=== PATIENT | male | born 1935 | race Caucasian/White ===

== ENCOUNTER → 2017-09-24 10:35 | Outpatient (CLI) | payer MEDICARE, SELFPAY ==
[2017-09-24 11:59] LABS: PSA,Total- Diagnostic < 0.01 ng/mL (0.0-4.0)
== END ==
PROVIDERS: Family Provider Internal Medicine; PCP Internal Medicine; Visit Provider Urology
DX: C61 Malignant neoplasm of prostate (principal); R97.20 Elevated prostate specific antigen [PSA]
CPT/HCPCS: 36415; 84153

== ENCOUNTER → 2017-12-21 15:47 | Outpatient (CLI) | payer MEDICARE, SELFPAY ==
[2017-12-21 18:53] LABS: PSA,Total- Diagnostic < 0.01 ng/mL (0.0-4.0)
== END ==
PROVIDERS: Family Provider Internal Medicine; PCP Internal Medicine; Visit Provider Urology
DX: C61 Malignant neoplasm of prostate (principal)
CPT/HCPCS: 36415; 84153

== ENCOUNTER → 2018-06-23 11:05 | Outpatient (CLI) | payer MEDICARE, SELFPAY ==
[2018-06-23 12:40] LABS: PSA,Total- Diagnostic < 0.01 ng/mL (0.0-4.0)
--- OUTSIDE RECORDS SUMMARY | 2018-08-28 02:34 | XMS RPT_ITS ---
:1935 Author Organization [place] Support Name Relationship Address Phone RAMILA CROWDER Unavailable [id number] + [address] [place] [address] R Unavailable Unavailable Unavailable KORNHAUS, WAVA Unavailable [address] + [place] [address] KORNHAUS, WAVA Unavailable [address] + [place] [address] KORNHAUS, WAVA Unavailable [address] + [place] [address] KORNHAUS, WAVA Unavailable [address] + [place] [address] KORNHAUS, WAVA Unavailable [address] + [place] [address] KORNHAUS, WAVA Unavailable [address] + [place] [address] KORNHAUS, WAVA Unavailable [address] + [place] [address] KORNHAUS, WAVA Unavailable [address] + [place] [address] KORNHAUS, WAVA Unavailable [address] + [place] [address] KORNHAUS, WAVA Unavailable [address] + [place] [address] KORNHAUS, WAVA Unavailable [address] + [place] [address] KORNHAUS, WAVA Unavailable [address] + [place] [address] KORNHAUS, WAVA Unavailable [address] + [place] [address] KORNHAUS, WAVA Unavailable [address] + [place] [address] VEL, WAVA Unavailable [id number] + [address] [place] [address] R Unavailable Unavailable Unavailable ANGELIANHAUS, WAVA Unavailable [address] + [place] [address] ANGELIANHAUS, WAVA Unavailable [address] + [place] [address] ANGELIANHAUS, WAVA Unavailable [address] + [address] [place] [address] R Unavailable Unavailable Unavailable Care Team Providers Name Role Phone GARY PETIT, ANTONY Diaz JR. Attending Unavailable ANTONY VEGA MD, JR. Primary Care Unavailable ANTONY VEGA MD, JR. Primary Care Unavailable JOSHUA MCGRATH MD. JENNIFER Diaz Consulting Unavailable JOSHUA MCGRATH MD. JENNIFER Diaz Admitting Unavailable JOSHUA MCGRATH MD. JENNIFER Diaz Attending Unavailable JOSHUA MCGRATH MD. JENNIFER Diaz Admitting Unavailable JOSHUA MCGRATH MD. JENNIFER Diaz Attending Unavailable ANTONY VEGA MD, JR. Primary Care Unavailable JAE MCCAULEY MD Consulting Unavailable JUDITH WILSON MD Consulting Unavailable CARMEN MCGRATH, DR. ELLEN Domingo Consulting Unavailable ALEXIS MCGRATH, DR. TIJERINA Consulting Unavailable LISSY GANTS, DR. MUÑOZ Consulting Unavailable HERBERT SR MD Consulting Unavailable JOSHUA MCGRATH MD. JENNIFER Diaz Admitting Unavailable JOSHUA MCGRATH MD. JENNIFER Diaz Attending Unavailable ANTONY VEGA MD, JR. Primary Care Unavailable ANTONY VEGA MD, JR. Consulting Unavailable HERBERT SR MD Consulting Unavailable JAE MCCAULEY MD Attending Unavailable ANTONY VEGA MD, JR. Primary Care Unavailable ANTONY VEGA MD, JR. Attending Unavailable ANTONY VEGA MD, JR. Primary Care Unavailable JUDITH WILSON MD Attending Unavailable ANTONY VEGA MD, JR. Primary Care Unavailable ANTONY VEGA MD, JR. Attending Unavailable ANTONY VEGA MD, JR. Primary Care Unavailable Chava Raman Attending Unavailable Chava Raman Referring Unavailable Antony Vega Jr. Primary Care Unavailable Chava Raman Attending Unavailable Antony Vega Jr. Primary Care Unavailable Chava Raman Referring Unavailable Chava Raman Attending Unavailable Chava Raman Referring Unavailable Antony Vega Jr. Primary Care Unavailable PROBLEMS PROBLEMS DATE TYPE CONDITION / CODE ATTENDING STATUS SOURCE 06/23/2018 Unknown C61 - Malignant Chava Raman Active [facility] prostate / Hospital C61(ICD-10) Repository 09/24/2017 Unknown R97.20 - Chava Raman Active [place] [facility] prostate Hospital specific antigen Repository [PSA] / R97.20(ICD-10) PROCEDURES PROCEDURES No Procedure Records FoundRESULTS RESULTS PSA,TOTAL- DIAGNOSTIC Collected: 06/23/2018 Status: F Source: [place] 11:13 AM [facility] REPOSITORY TYPE CODE TESTS RESULT OUT OF RANGE REFERENCE UNITS LAB L501.9940 0.0-4.0 ng/mL PSA, Normal DIAGNOSTIC < 0.01 Result Comment: This test was performed using the TPSA assay method for the [employer] chemistry system. Values obtained with different assay methods cannot be used interchangably. When changing PSA assays in the course of monitoring a patient, additional sequential testing should be carried out to confirm baseline values. Performed By: #### L501.9940 #### [facility] [address] [place], [address] HGMP Collected: 06/16/2018 Status: F Source: [employer] 10:26 AM [facility] EM[facility]PART[facility] REPOSITORY TYPE CODE TESTS RESULT OUT OF REFERENCE UNITS RANGE LAB WBC(LOINC) 4.60-10.80 10 3/mcL WBC 5.50 LAB RBCCT(LOINC 4.04-6.13 10 6/mcL ) Low RBC 3.64 LAB HGB(LOINC) 14.0-18.0 G/dL Low Hgb 11.2 LAB HCT(LOINC) 42.0-52.0 % Low Hct 34.0 LAB MCV(LOINC) 80.0-94.0 fL MCV 93.4 LAB MCH(LOINC) 27.0-31.2 pg MCH 30.8 LAB MCHC(LOINC) 31.8-35.4 G/dL MCHC 33.0 LAB RDW(LOINC) 11.5-14.5 % High RDW 18.1 LAB PLT(LOINC) 130-400 10 3/mcL Platelet 399 LAB MPV(LOINC) 7.4-10.4 fL MPV 7.6 Performed By: #### HGMP #### [facility] [address] [place], [place] [address] HG Collected: 03/24/2018 Status: F Source: [facility] 1:42 PM [facility] EM[facility] REPOSITORY TYPE CODE TESTS RESULT OUT OF REFERENCE UNITS RANGE LAB WBC(LOINC) 4.50-10.80 10 3/mcL WBC 7.00 LAB RBCCT(LOINC 4.50-6.00 10 6/mcL ) Low RBC 3.71 LAB HGB(LOINC) 13.0-17.5 G/dL Low Hgb 11.3 LAB HCT(LOINC) 40.0-52.0 % Low Hct 34.1 LAB MCV(LOINC) 81.0-100.0 fL MCV 92.0 LAB MCH(LOINC) 27.0-33.0 pg MCH 30.4 LAB MCHC(LOINC) 32.0-36.0 G/dL MCHC 33.0 LAB RDW(LOINC) 11.5-15.5 % High RDW 16.0 LAB PLT(LOINC) 150-450 10 3/mcL High Platelet 603 LAB MPV(LOINC) 6.4-10.5 fL MPV 7.6 Performed By: #### HGMP #### [place] [address] XR CHEST 2 VIEWS Observed: 03/24/2018 Status: F Source: [facility] 12:14 PM [facility] REPOSITORY ORIGINAL XR CHEST 2 VIEWS CLINICAL STATEMENT: SOB COMPARISON: 03/05/2018 FINDINGS:The cardiac contours are slightly decreased in prominence. Postoperative changes to the sternum and mediastinum are noted. There is a moderate LEFT pleural effusion or scarring cardiac and susy diaphragm contours progressive when compared to the prior imaging study with underlying parenchymal opacity [. No pneumothorax or pneumomediastinum has developed. Minimal blunting of the RIGHT costophre robert angle and findings consistent with a trace amount of fluid is present. 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 Chronic changes to the bony thorax is noted. IMPRESSION:Mild worsening in aeration to the LEFT lung base Interpreted By: Siri Kowalski MD Preliminary Report By: Siri Kowalski MD Electronically Signed By: Siri Kowalski MD Dictated Date: 03/24/2018 12:38:59 PM Prelim Date: 03/24/2018 12:38:59 PM Sign Date: 03/24/2018 12:39:52 PM CBC Collected: 03/06/2018 Status: F Source: [facility] 3:49 AM [facility] REPOSITORY TYPE CODE TESTS RESULT OUT OF REFERENCE UNITS RANGE LAB WBC(LOINC) 4.50-10.80 10 3/mcL WBC 4.60 LAB RBCCT(LOINC 4.50-6.00 10 6/mcL ) Low RBC 3.40 LAB HGB(LOINC) 13.0-17.5 G/dL Low Hgb 10.5 LAB HCT(LOINC) 40.0-52.0 % Low Hct 31.0 LAB MCV(LOINC) 81.0-100.0 fL MCV 91.3 LAB MCH(LOINC) 27.0-33.0 pg MCH 30.8 LAB MCHC(LOINC) 32.0-36.0 G/dL MCHC 33.8 LAB RDW(LOINC) 11.5-15.5 % High RDW 16.8 LAB PLT(LOINC) 150-450 10 3/mcL Platelet 261 LAB MPV(LOINC) 6.4-10.5 fL MPV 7.7 Performed By: #### CBC, ADIFF, ANEU, BMP, GFR #### [place] [address] .AUTO DIFF Collected: 03/06/2018 Status: F Source: [facility] 3:49 AM [facility] REPOSITORY TYPE CODE TESTS RESULT OUT OF REFERENCE UNITS RANGE LAB TIM(LOINC) 50.0-75.0 % Neutrophil % 62.9 LAB LYM(LOINC) 20.0-40.0 % Low Lymphocyte % 17.3 LAB MON(LOINC) 2.0-13.0 % Monocyte High % 14.8 LAB EO(LOINC) 0.0-6.0 % Eosinophil % 4.7 LAB BAS(LOINC) 0.0-2.5 % Basophil % 0.3 LAB ABLYM(LOIN 0.90-4.32 10 3/mcL C) Low Lymphocyte, 0.80 Absolute LAB CISCO(LOINC 0.09-1.40 10 3/mcL ) Monocyte, 0.70 Absolute LAB AEOS(LOINC 0.00-0.65 10 3/mcL ) Eosinophil, 0.20 Absolute LAB ABAS(LOINC 0.00-0.27 10 3/mcL ) Basophil, 0.00 Absolute Performed By: #### CBC, ADIFF, ANEU, BMP, GFR #### [address] [address] .NEUABS Collected: 03/06/2018 Status: F Source: [facility] 3:49 AM [facility] REPOSITORY TYPE CODE TESTS RESULT OUT OF REFERENCE UNITS RANGE LAB ANEU(LOINC) 2.25-8.10 10 3/mcL Neutrophil, 2.90 Absolute Performed By: #### CBC, ADIFF, ANEU, BMP, GFR #### [place] [id number] BMP Collected: 03/06/2018 Status: F Source: [facility] 3:49 AM [facility] REPOSITORY TYPE CODE TESTS RESULT OUT OF REFERENCE UNITS RANGE LAB GLU(LOINC) 82-115 mg/dL Glucose Level 110 LAB NA(LOINC) 136-145 mEq/L Sodium Level 139 LAB K(LOINC) 3.5-5.0 mEq/L Potassium Level 4.2 LAB CL(LOINC) 98-110 mEq/L Chloride 106 LAB CO2(LOINC) 22-32 mEq/L CO2 27 LAB EBAL(LOINC 4.0-15.0 mEq/L ) Electrolyte Balance 6.0 LAB BUN(LOINC) 8.0-22.0 mg/dL BUN High 50.0 LAB CRE(LOINC) 0.60-1.40 mg/dL Creatinine Lvl (s) 1.15 LAB BC(LOINC) 10.0-22.0 ratio High BUN/Creatinine 43.5 Ratio LAB CA(LOINC) 8.4-10.1 mg/dL Calcium Lvl 8.8 Performed By: #### CBC, ADIFF, ANEU, BMP, GFR #### [address] [address] .GFR Collected: 03/06/2018 Status: F Source: [facility] 3:49 AM [facility] REPOSITORY TYPE CODE TESTS RESULT OUT OF REFERENCE UNITS RANGE LAB GFRAA(LOINC ml/min/1.73 ) sqm GFR >60 Mongolian Result Comment: GFR Population mean for , Non- Americans Ages 20-29 = 116 mL/min/1.73 sq.m. Ages 30-39 = 107 mL/min/1.73 sq.m. Ages 40-49 = 99 mL/min/1.73 sq.m. Ages 50-59 = 93 mL/min/1.73 sq.m. Ages 60-69 = 85 mL/min/1.73 sq.m. Ages 70+ = 75 mL/min/1.73 sq.m. Chronic Kidney Disease: Less than 60 mL/min/1.73 square meters End Stage Renal Disease: Less than 15 mL/min/1.73 square meters LAB GFRNO(LOINC) ml/min/1.73sqm GFR Non- >60 Result Comment: GFR Population mean for , Non- Americans Ages 20-29 = 116 mL/min/1.73 sq.m. Ages 30-39 = 107 mL/min/1.73 sq.m. Ages 40-49 = 99 mL/min/1.73 sq.m. Ages 50-59 = 93 mL/min/1.73 sq.m. Ages 60-69 = 85 mL/min/1.73 sq.m. Ages 70+ = 75 mL/min/1.73 sq.m. Chronic Kidney Disease: Less than 60 mL/min/1.73 square meters End Stage Renal Disease: Less than 15 mL/min/1.73 square meters Performed By: #### CBC, ADIFF, ANEU, BMP, GFR #### [place] [address] XR CHEST 2 VIEWS Observed: 03/05/2018 Status: F Source: [facility] 6:43 AM [facility] REPOSITORY ORIGINAL Clinical history: Abnormal breath sounds. Follow-up after cardiac surgery. Postoperative day 4. COMPARISON: Chest x-ray on 03/04/2018. PA and lateral radiographs of the chest were obtained. LEFT subclavian central venous catheter tip is in the superior vena cava. Bilateral chest tubes have been removed since the prior day. The lungs demonstrate improved expansion. There is minimal bilateral pleural fluid and small bilateral lower lobe atelectasis. This is improved since the prior day. There is no pneumothorax. No pulmonar y edema is present. No new abnormality has developed. IMPRESSION: Small bilateral pleural effusions and mild bilateral lower lobe atelectasis. No pneumothorax. Interpreted By: Lambert Weir MD Preliminary Report By: Lambert Weir MD Electronically Signed By: Lambert Weir MD Dictated Date: 03/05/2018 7:23:58 AM Prelim Date: 03/05/2018 7:23:58 AM Sign Date: 03/05/2018 7:25:48 AM BMP Collected: 03/05/2018 Status: F Source: [facility] 4:03 AM [facility] REPOSITORY TYPE CODE TESTS RESULT OUT OF REFERENCE UNITS RANGE LAB GLU(LOINC) 82-115 mg/dL Glucose Level 106 LAB NA(LOINC) 136-145 mEq/L Sodium Level 139 LAB K(LOINC) 3.5-5.0 mEq/L Potassium Level 3.9 LAB CL(LOINC) 98-110 mEq/L Chloride 106 LAB CO2(LOINC) 22-32 mEq/L CO2 25 LAB EBAL(LOINC 4.0-15.0 mEq/L ) Electrolyte Balance 8.0 LAB BUN(LOINC) 8.0-22.0 mg/dL BUN High 49.0 LAB CRE(LOINC) 0.60-1.40 mg/dL Creatinine Lvl (s) 1.22 LAB BC(LOINC) 10.0-22.0 ratio High BUN/Creatinine 40.2 Ratio LAB CA(LOINC) 8.4-10.1 mg/dL Calcium Lvl 8.4 Performed By: #### BMP, GFR, CBC, ADIFF, ANEU #### [place] [address] .GFR Collected: 03/05/2018 Status: F Source: [facility] 4:03 AM [facility] REPOSITORY TYPE CODE TESTS RESULT OUT OF REFERENCE UNITS RANGE LAB GFRAA(LOINC ml/min/1.73 ) sqm GFR >60 Mongolian Result Comment: GFR Population mean for , Non- Americans Ages 20-29 = 116 mL/min/1.73 sq.m. Ages 30-39 = 107 mL/min/1.73 sq.m. Ages 40-49 = 99 mL/min/1.73 sq.m. Ages 50-59 = 93 mL/min/1.73 sq.m. Ages 60-69 = 85 mL/min/1.73 sq.m. Ages 70+ = 75 mL/min/1.73 sq.m. Chronic Kidney Disease: Less than 60 mL/min/1.73 square meters End Stage Renal Disease: Less than 15 mL/min/1.73 square meters LAB GFRNO(LOINC) ml/min/1.73sqm GFR Non- 57 Result Comment: GFR Population mean for , Non- Americans Ages 20-29 = 116 mL/min/1.73 sq.m. Ages 30-39 = 107 mL/min/1.73 sq.m. Ages 40-49 = 99 mL/min/1.73 sq.m. Ages 50-59 = 93 mL/min/1.73 sq.m. Ages 60-69 = 85 mL/min/1.73 sq.m. Ages 70+ = 75 mL/min/1.73 sq.m. Chronic Kidney Disease: Less than 60 mL/min/1.73 square meters End Stage Renal Disease: Less than 15 mL/min/1.73 square meters Performed By: #### BMP, GFR, CBC, ADIFF, ANEU #### [address] [address] CBC Collected: 03/05/2018 Status: F Source: [employer] 4:03 AM [facility] REPOSITORY TYPE CODE TESTS RESULT OUT OF REFERENCE UNITS RANGE LAB WBC(LOINC) 4.50-10.80 10 3/mcL WBC 4.90 LAB RBCCT(LOINC 4.50-6.00 10 6/mcL ) Low RBC 3.15 LAB HGB(LOINC) 13.0-17.5 G/dL Low Hgb 9.7 LAB HCT(LOINC) 40.0-52.0 % Low Hct 28.6 LAB MCV(LOINC) 81.0-100.0 fL MCV 90.7 LAB MCH(LOINC) 27.0-33.0 pg MCH 30.7 LAB MCHC(LOINC) 32.0-36.0 G/dL MCHC 33.9 LAB RDW(LOINC) 11.5-15.5 % High RDW 17.5 LAB PLT(LOINC) 150-450 10 3/mcL Platelet 201 LAB MPV(LOINC) 6.4-10.5 fL MPV 7.9 Performed By: #### BMP, GFR, CBC, ADIFF, ANEU #### [address] [address] .AUTO DIFF Collected: 03/05/2018 Status: F Source: [facility] 4:03 AM [facility] REPOSITORY TYPE CODE TESTS RESULT OUT OF REFERENCE UNITS RANGE LAB TIM(LOINC) 50.0-75.0 % Neutrophil % 68.0 LAB LYM(LOINC) 20.0-40.0 % Low Lymphocyte % 17.3 LAB MON(LOINC) 2.0-13.0 % Monocyte % 10.8 LAB EO(LOINC) 0.0-6.0 % Eosinophil % 3.5 LAB BAS(LOINC) 0.0-2.5 % Basophil % 0.4 LAB ABLYM(LOIN 0.90-4.32 10 3/mcL C) Low Lymphocyte, 0.80 Absolute LAB CISCO(LOINC 0.09-1.40 10 3/mcL ) Monocyte, 0.50 Absolute LAB AEOS(LOINC 0.00-0.65 10 3/mcL ) Eosinophil, 0.20 Absolute LAB ABAS(LOINC 0.00-0.27 10 3/mcL ) Basophil, 0.00 Absolute Performed By: #### BMP, GFR, CBC, ADIFF, ANEU #### [place] [address] .NEUABS Collected: 03/05/2018 Status: F Source: [facility] 4:03 AM [facility] REPOSITORY TYPE CODE TESTS RESULT OUT OF REFERENCE UNITS RANGE LAB ANEU(LOINC) 2.25-8.10 10 3/mcL Neutrophil, 3.30 Absolute Performed By: #### BMP, GFR, CBC, ADIFF, ANEU #### [place] [address] TABO Collected: 03/04/2018 Status: C Source: [facility] 8:43 AM [facility] REPOSITORY TYPE CODE TESTS RESULT OUT OF RANGE REFERENCE UNITS LAB ABORH(LOINC ) Unknown ABO/Rh A NEG Interp Performed By: #### ABORH, ANTIS #### [place] [address] TABS Collected: 03/04/2018 Status: F Source: [facility] 8:43 AM [facility] REPOSITORY TYPE CODE TESTS RESULT OUT OF REFERENCE UNITS RANGE LAB ANST(LOINC ) Antibody Negative ABSC Screen Tango Performed By: #### ABORH, ANTIS #### [place] [address] RBC (PRODUCT) Collected: 03/04/2018 Status: F Source: [facility] 8:24 AM [facility]PART[facility] REPOSITORY TYPE CODE TESTS RESULT OUT OF REFERENCE UNITS RANGE LAB RBCPR(LOINC ) RBC Product RBC Ready Ready for Pickup Performed By: #### RBCP #### [facility] [address] [place] [address] XR CHEST 1 VIEW Observed: 03/04/2018 Status: F Source: [facility] 4:30 AM [facility]PART[facility] REPOSITORY ORIGINAL Clinical history: Abnormal breath sounds. COMPARISON: Chest x-ray on 03/03/2018. Portable AP radiograph of the chest was obtained at 4:50 AM. LEFT subclavian central venous catheter tip is in the superior vena cava. Bilateral chest tubes are unchanged. There is no visible pneumothorax. Mild atelectasis at both lung bases is slightly improved since the prior day. There is no significant pleural fluid. No pulmonary edema is present. No new abnormality has developed. IMPRESSION: Small bilateral basilar infiltrates are likely atelectasis showing slight improvement. Interpreted By: Lambert Weir MD Preliminary Report By: Lambert Weir MD Electronically Signed By: Lambert Weir MD Dictated Date: 03/04/2018 4:57:34 AM Prelim Date: 03/04/2018 4:57:34 AM Sign Date: 03/04/2018 4:59:21 AM CBC Collected: 03/04/2018 Status: F Source: [facility] 3:36 AM [facility] REPOSITORY TYPE CODE TESTS RESULT OUT OF REFERENCE UNITS RANGE LAB WBC(LOINC) 4.50-10.80 10 3/mcL WBC 7.20 LAB RBCCT(LOINC 4.50-6.00 10 6/mcL ) Low RBC 2.33 LAB HGB(LOINC) 13.0-17.5 G/dL Low Hgb 7.5 LAB HCT(LOINC) 40.0-52.0 % Low Hct 22.2 LAB MCV(LOINC) 81.0-100.0 fL MCV 95.2 LAB MCH(LOINC) 27.0-33.0 pg MCH 32.2 LAB MCHC(LOINC) 32.0-36.0 G/dL MCHC 33.8 LAB RDW(LOINC) 11.5-15.5 % High RDW 15.8 LAB PLT(LOINC) 150-450 10 3/mcL Platelet 201 LAB MPV(LOINC) 6.4-10.5 fL MPV 7.9 Performed By: #### CBC, ADIFF, ANEU, GFR, BMP #### [address] [address] .AUTO DIFF Collected: 03/04/2018 Status: F Source: [facility] 3:36 AM [facility]PARTMENT REPOSITORY TYPE CODE TESTS RESULT OUT OF REFERENCE UNITS RANGE LAB TIM(LOINC) 50.0-75.0 % High Neutrophil % 80.5 LAB LYM(LOINC) 20.0-40.0 % Low Lymphocyte % 10.0 LAB MON(LOINC) 2.0-13.0 % Monocyte % 8.6 LAB EO(LOINC) 0.0-6.0 % Eosinophil % 0.7 LAB BAS(LOINC) 0.0-2.5 % Basophil % 0.2 LAB ABLYM(LOIN 0.90-4.32 10 3/mcL C) Low Lymphocyte, 0.70 Absolute LAB CISCO(LOINC 0.09-1.40 10 3/mcL ) Monocyte, 0.60 Absolute LAB AEOS(LOINC 0.00-0.65 10 3/mcL ) Eosinophil, 0.10 Absolute LAB ABAS(LOINC 0.00-0.27 10 3/mcL ) Basophil, 0.00 Absolute Performed By: #### CBC, ADIFF, ANEU, GFR, BMP #### [address] [address] .NEUABS Collected: 03/04/2018 Status: F Source: [facility] 3:36 AM [facility]PART[facility] REPOSITORY TYPE CODE TESTS RESULT OUT OF REFERENCE UNITS RANGE LAB ANEU(LOINC) 2.25-8.10 10 3/mcL Neutrophil, 5.80 Absolute Performed By: #### CBC, ADIFF, ANEU, GFR, BMP #### [place] [address] .GFR Collected: 03/04/2018 Status: F Source: [facility] 3:36 AM [facility]PART[facility] REPOSITORY TYPE CODE TESTS RESULT OUT OF REFERENCE UNITS RANGE LAB GFRAA(LOINC ml/min/1.73 ) sqm GFR >60 Mongolian Result Comment: GFR Population mean for , Non- Americans Ages 20-29 = 116 mL/min/1.73 sq.m. Ages 30-39 = 107 mL/min/1.73 sq.m. Ages 40-49 = 99 mL/min/1.73 sq.m. Ages 50-59 = 93 mL/min/1.73 sq.m. Ages 60-69 = 85 mL/min/1.73 sq.m. Ages 70+ = 75 mL/min/1.73 sq.m. Chronic Kidney Disease: Less than 60 mL/min/1.73 square meters End Stage Renal Disease: Less than 15 mL/min/1.73 square meters LAB GFRNO(LOINC) ml/min/1.73sqm GFR Non- >60 Result Comment: GFR Population mean for , Non- Americans Ages 20-29 = 116 mL/min/1.73 sq.m. Ages 30-39 = 107 mL/min/1.73 sq.m. Ages 40-49 = 99 mL/min/1.73 sq.m. Ages 50-59 = 93 mL/min/1.73 sq.m. Ages 60-69 = 85 mL/min/1.73 sq.m. Ages 70+ = 75 mL/min/1.73 sq.m. Chronic Kidney Disease: Less than 60 mL/min/1.73 square meters End Stage Renal Disease: Less than 15 mL/min/1.73 square meters Performed By: #### CBC, ADIFF, ANEU, GFR, BMP #### [place] [address] BMP Collected: 03/04/2018 Status: F Source: [facility] 3:36 AM [facility] REPOSITORY TYPE CODE TESTS RESULT OUT OF REFERENCE UNITS RANGE LAB GLU(LOINC) 82-115 mg/dL Glucose Level 111 LAB NA(LOINC) 136-145 mEq/L Sodium Level 139 LAB K(LOINC) 3.5-5.0 mEq/L Potassium Level 4.4 LAB CL(LOINC) 98-110 mEq/L Chloride 107 LAB CO2(LOINC) 22-32 mEq/L CO2 24 LAB EBAL(LOINC 4.0-15.0 mEq/L ) Electrolyte Balance 8.0 LAB BUN(LOINC) 8.0-22.0 mg/dL BUN High 47.0 LAB CRE(LOINC) 0.60-1.40 mg/dL Creatinine Lvl (s) 1.15 LAB BC(LOINC) 10.0-22.0 ratio High BUN/Creatinine 40.9 Ratio LAB CA(LOINC) 8.4-10.1 mg/dL Calcium Lvl 8.6 Performed By: #### CBC, ADIFF, ANEU, GFR, BMP #### [place] [address] Observed: 03/03/2018 Status: F Source: [facility] 10:37 PM [facility] EM[facility] REPOSITORY . MICRO - Microbiology PROCEDURE: Blood Culture (bacterial and fungal) [*1] SOURCE: Blood BODY SITE: COLLECTED DATE/TIME: 03/03/2018 22:37 EDT RECEIVED DATE/TIME: 03/04/2018 06:23 EDT START DATE/TIME: 03/04/2018 06:23 EDT FREE TEXT SOURCE: peripheral FINAL REPORTS Final Report [] Verified Date/Time/Personnel: 03/31/2018 10:35 EDT Blood Culture with fungus: No growth at 4 weeks. PRELIMINARY REPORTS Preliminary Report [] Verified Date/Time/Personnel: 03/04/2018 06:59 EDT Culture has been received in lab and is no growth to date. Culture will be held for four weeks. Performing Locations *1: This test was performed at: [facility], [address] [place] [address], [address] [place] [address] Performed By: #### CFUNGB #### [place] [address] Observed: 03/03/2018 Status: F Source: [facility] 9:50 PM [facility] EMERGENC[facility] DEPARTMENT REPOSITORY . MICRO - Microbiology PROCEDURE: Blood Culture (bacterial and fungal) [*1] SOURCE: Blood BODY SITE: COLLECTED DATE/TIME: 03/03/2018 21:50 EDT RECEIVED DATE/TIME: 03/03/2018 22:07 EDT START DATE/TIME: 03/03/2018 22:07 EDT FREE TEXT SOURCE: triple lumen FINAL REPORTS Final Report [] Verified Date/Time/Personnel: 03/31/2018 10:34 EDT Blood Culture with fungus: No growth at 4 weeks. PRELIMINARY REPORTS Preliminary Report [] Verified Date/Time/Personnel: 03/03/2018 22:59 EDT Culture has been received in lab and is no growth to date. Culture will be held for four weeks. Performing Locations *1: This test was performed at: [facility], [address] [place] [address], [id number] , [facility] Performed By: #### CFUNGB #### [place] [address] CBC Collected: 03/03/2018 Status: F Source: [facility] 9:50 [facility] REPOSITORY TYPE CODE TESTS RESULT OUT OF REFERENCE UNITS RANGE LAB WBC(LOINC) 4.50-10.80 10 3/mcL WBC 7.60 LAB RBCCT(LOINC 4.50-6.00 10 6/mcL ) Low RBC 2.47 LAB HGB(LOINC) 13.0-17.5 G/dL Low Hgb 8.0 LAB HCT(LOINC) 40.0-52.0 % Low Hct 23.5 LAB MCV(LOINC) 81.0-100.0 fL MCV 95.2 LAB MCH(LOINC) 27.0-33.0 pg MCH 32.2 LAB MCHC(LOINC) 32.0-36.0 G/dL MCHC 33.9 LAB RDW(LOINC) 11.5-15.5 % High RDW 15.6 LAB PLT(LOINC) 150-450 10 3/mcL Platelet 214 LAB MPV(LOINC) 6.4-10.5 fL MPV 8.7 Performed By: #### CBC, ADIFF, ANEU #### [place] [id number] .AUTO DIFF Collected: 03/03/2018 Status: F Source: [facility] 9:50 PM [facility] EMERGENCY [facility]PART[facility] REPOSITORY TYPE CODE TESTS RESULT OUT OF REFERENCE UNITS RANGE LAB ITM(LOINC) 50.0-75.0 % High Neutrophil % 80.8 LAB LYM(LOINC) 20.0-40.0 % Low Lymphocyte % 9.7 LAB MON(LOINC) 2.0-13.0 % Monocyte % 9.0 LAB EO(LOINC) 0.0-6.0 % Eosinophil % 0.3 LAB BAS(LOINC) 0.0-2.5 % Basophil % 0.2 LAB ABLYM(LOIN 0.90-4.32 10 3/mcL C) Low Lymphocyte, 0.70 Absolute LAB CISCO(LOINC 0.09-1.40 10 3/mcL ) Monocyte, 0.70 Absolute LAB AEOS(LOINC 0.00-0.65 10 3/mcL ) Eosinophil, 0.00 Absolute LAB ABAS(LOINC 0.00-0.27 10 3/mcL ) Basophil, 0.00 Absolute Performed By: #### CBC, ADIFF, ANEU #### [place] [address] .NEUABS Collected: 03/03/2018 Status: F Source: [facility] 9:50 PM [facility] REPOSITORY TYPE CODE TESTS RESULT OUT OF REFERENCE UNITS RANGE LAB ANEU(LOINC) 2.25-8.10 10 3/mcL Neutrophil, 6.10 Absolute Performed By: #### CBC, ADIFF, ANEU #### [place] [address] XR CHEST 1 VIEW Observed: 03/03/2018 Status: F Source: [facility] 11:49 AM [facility] EMERGENCY DEPARTMENT REPOSITORY ORIGINAL Portable Chest x-ray Clinical Statement: abnormal breath sounds Comparison: 03/02/2018 Low lung volumes and possible basilar atelectatic changes and/or consolidations noted. Mild perihilar central interstitial prominence suspected. Stable cardiomegaly. No pneumothorax or large pleural eff usion is seen. The left-sided central line and bilateral chest tubes again noted. IMPRESSION: Mildly worsened aeration with possible basilar atelectatic changes and/or consolidations. Suspected mild central congestion. Interpreted By: John Farfan DO Preliminary Report By: John Farfan DO Electronically Signed By: John Farfan DO Dictated Date: 03/03/2018 12:12:45 PM Prelim Date: 03/03/2018 12:12:45 PM Sign Date: 03/03/2018 12:15:18 PM MG Collected: 03/03/2018 Status: F Source: [facility] 7:14 AM [facility] EMERGENCY DEPARTMENT REPOSITORY TYPE CODE TESTS RESULT OUT OF REFERENCE UNITS RANGE LAB MG(LOINC) 1.6-2.4 mg/dL Magnesium Lvl 2.4 Performed By: #### MG #### [place] [id number] K Collected: 03/03/2018 Status: F Source: [facility] 4:14 AM [facility] EMERGENCY DEPARTMENT REPOSITORY TYPE CODE TESTS RESULT OUT OF REFERENCE UNITS RANGE LAB K(LOINC) 3.5-5.0 mEq/L Potassium Level 4.5 Performed By: #### K #### [address] [id number] K Collected: 03/02/2018 Status: F Source: [facility] 4:35 PM [facility] EMERGENCY DEPARTMENT REPOSITORY TYPE CODE TESTS RESULT OUT OF REFERENCE UNITS RANGE LAB K(LOINC) 3.5-5.0 mEq/L Potassium Level 4.6 Performed By: #### K #### [place] [id number] XR CHEST 1 VIEW Observed: 03/02/2018 Status: F Source: [facility] [employer] [facility] 4:53 AM [facility] EMERGENCY DEPARTMENT REPOSITORY ORIGINAL Clinical history: Abnormal breath sounds. COMPARISON: Chest x-ray on 03/01/2018. Portable AP radiograph of the chest was obtained at 5:07 AM. The endotracheal tube and the enteric tube have been removed since chest x-ray on the prior day. LEFT subclavian central venous catheter tip is in the superior vena cava. Bilateral chest tubes are in place. The lungs are remarkable for linear atelectasis in the RIGHT perihilar region that is new. There is no significant infiltrate or pulmonary edema. No pleural fluid or pneumothorax is present. IMPRESSION: Patient has been extubated. No significant infiltrate or pneumothorax. Interpreted By: Lambert Weir MD Preliminary Report By: Lambert Weir MD Electronically Signed By: Lambert Weir MD Dictated Date: 03/02/2018 5:28:30 AM Prelim Date: 03/02/2018 5:28:30 AM Sign Date: 03/02/2018 5:30:21 AM BG Collected: 03/02/2018 Status: F Source: [facility] [employer] [facility] 4:26 AM [facility] EMERGENCY DEPARTMENT REPOSITORY Order Comment: POD 1 TYPE CODE TESTS RESULT OUT OF REFERENCE UNITS RANGE LAB PH(LOINC) 7.380-7.460 pH 7.434 LAB PCO2(LOINC 32.0-46.0 mmHg ) pCO2 34.3 LAB PO2(LOINC) 74.0-108.0 mmHg pO2 High 124.7 LAB HCO3(LOINC 21.0-29.0 mmol/L ) HCO3 22.5 LAB TCO2(LOINC 22.0-30.0 mmol/L ) CO2 Totl 23.5 LAB BE(LOINC) mmol/L Base Excess -1.4 LAB O2SAT(LOIN 92.0-96.0 % C) O2 Sat High 98.5 LAB BPRES(LOIN mmHg C) Barometric 731 Pressure Performed By: #### BG #### [facility] [address] [place] [address] .GFR Collected: 03/02/2018 Status: F [facility] REPOSIT[facility] TYPE CODE TESTS RESULT OUT OF REFERENCE UNITS RANGE LAB GFRAA(LOINC ml/min/1.73 ) sqm GFR >60 Mongolian Result Comment: GFR Population mean for , Non- Americans Ages 20-29 = 116 mL/min/1.73 sq.m. Ages 30-39 = 107 mL/min/1.73 sq.m. Ages 40-49 = 99 mL/min/1.73 sq.m. Ages 50-59 = 93 mL/min/1.73 sq.m. Ages 60-69 = 85 mL/min/1.73 sq.m. Ages 70+ = 75 mL/min/1.73 sq.m. Chronic Kidney Disease: Less than 60 mL/min/1.73 square meters End Stage Renal Disease: Less than 15 mL/min/1.73 square meters LAB GFRNO(LOINC) ml/min/1.73sqm GFR Non- >60 Result Comment: GFR Population mean for , Non- Americans Ages 20-29 = 116 mL/min/1.73 sq.m. Ages 30-39 = 107 mL/min/1.73 sq.m. Ages 40-49 = 99 mL/min/1.73 sq.m. Ages 50-59 = 93 mL/min/1.73 sq.m. Ages 60-69 = 85 mL/min/1.73 sq.m. Ages 70+ = 75 mL/min/1.73 sq.m. Chronic Kidney Disease: Less than 60 mL/min/1.73 square meters End Stage Renal Disease: Less than 15 mL/min/1.73 square meters Performed By: #### GFR, CMP #### [address] [address] CMP Collected: 03/02/2018 Status: F Source: [facility] 4:26 AM [facility] EMERGENCY DEPARTMENT REPOSITORY TYPE CODE TESTS RESULT OUT OF REFERENCE UNITS RANGE LAB GLU(LOINC) 82-115 mg/dL Glucose High Level 149 LAB NA(LOINC) 136-145 mEq/L Sodium Level 142 LAB K(LOINC) 3.5-5.0 mEq/L Potassium Level 4.3 LAB CL(LOINC) 98-110 mEq/L Chloride 110 LAB CO2(LOINC) 22-32 mEq/L CO2 22 LAB EBAL(LOINC 4.0-15.0 mEq/L ) Electrolyte Balance 10.0 LAB BUN(LOINC) 8.0-22.0 mg/dL BUN High 24.0 LAB CRE(LOINC) 0.60-1.40 mg/dL Creatinine Lvl (s) 0.99 LAB BC(LOINC) 10.0-22.0 ratio High BUN/Creatinine 24.2 Ratio LAB CA(LOINC) 8.4-10.1 mg/dL Calcium Lvl 9.1 LAB PROT(LOINC 6.0-8.5 G/dL ) Low Total Protein 5.9 LAB ALB(LOINC) 3.2-4.8 G/dL Albumin Level 3.4 LAB GLB(LOINC) 1.5-3.8 G/dL Globulin 2.5 LAB AG(LOINC) 0.9-1.6 ratio A/G Ratio 1.4 LAB BILT(LOINC 0.2-1.2 mg/dL ) Bili Total 0.6 LAB AP(LOINC) 38-126 U/L Alk Phos 77 LAB AST(LOINC) 8-34 U/L AST/SGOT 33 LAB ALT(LOINC) 12-55 U/L ALT/SGPT 21 Performed By: #### GFR, CMP #### [place] [address] CBC Collected: 03/02/2018 Status: F Source: [facility] 4:26 AM [facility] EMERGENCY DEPARTMENT REPOSITORY TYPE CODE TESTS RESULT OUT OF REFERENCE UNITS RANGE LAB WBC(LOINC) 4.50-10.80 10 3/mcL WBC 7.00 LAB RBCCT(LOINC 4.50-6.00 10 6/mcL ) Low RBC 2.82 LAB HGB(LOINC) 13.0-17.5 G/dL Low Hgb 9.0 LAB HCT(LOINC) 40.0-52.0 % Low Hct 26.3 LAB MCV(LOINC) 81.0-100.0 fL MCV 93.5 LAB MCH(LOINC) 27.0-33.0 pg MCH 31.9 LAB MCHC(LOINC) 32.0-36.0 G/dL MCHC 34.1 LAB RDW(LOINC) 11.5-15.5 % High RDW 16.4 LAB PLT(LOINC) 150-450 10 3/mcL Platelet 189 LAB MPV(LOINC) 6.4-10.5 fL MPV 7.9 Performed By: #### CBCJEFFERY ANEU #### [address] [address] .AUTO DIFF Collected: 03/02/2018 Status: F Source: [facility] 4:26 AM [facility] EMERGENCY DEPARTMENT REPOSITORY TYPE CODE TESTS RESULT OUT OF REFERENCE UNITS RANGE LAB TIM(LOINC) 50.0-75.0 % High Neutrophil % 82.1 LAB LYM(LOINC) 20.0-40.0 % Low Lymphocyte % 8.3 LAB MON(LOINC) 2.0-13.0 % Monocyte % 9.4 LAB EO(LOINC) 0.0-6.0 % Eosinophil % 0.1 LAB BAS(LOINC) 0.0-2.5 % Basophil % 0.1 LAB ABLYM(LOIN 0.90-4.32 10 3/mcL C) Low Lymphocyte, 0.60 Absolute LAB CISCO(LOINC 0.09-1.40 10 3/mcL ) Monocyte, 0.70 Absolute LAB AEOS(LOINC 0.00-0.65 10 3/mcL ) Eosinophil, 0.00 Absolute LAB ABAS(LOINC 0.00-0.27 10 3/mcL ) Basophil, 0.00 Absolute Performed By: #### CBCJEFFERY, ANEU #### [address] [address] .NEUABS Collected: 03/02/2018 Status: F Source: [facility] 4:26 AM [facility] EMERGENCY DEPARTMENT REPOSITORY TYPE CODE TESTS RESULT OUT OF REFERENCE UNITS RANGE LAB ANEU(LOINC) 2.25-8.10 10 3/mcL Neutrophil, 5.80 Absolute Performed By: #### CBC, ADIFF, ANEU #### [place] [address] K Collected: 03/02/2018 Status: F Source: [facility] 12:46 AM [facility] EMERGENCY DEPARTMENT REPOSITORY TYPE CODE TESTS RESULT OUT OF REFERENCE UNITS RANGE LAB K(LOINC) 3.5-5.0 mEq/L Potassium Level 4.5 Performed By: #### K, HH #### [place] [address] HH Collected: 03/02/2018 Status: F Source: [facility] 12:46 AM [facility] EMERGENCY DEPARTMENT REPOSITORY TYPE CODE TESTS RESULT OUT OF RANGE REFERENCE UNITS LAB HGB(LOINC) 13.0-17.5 G/dL Low Hgb 9.2 LAB HCT(LOINC) 40.0-52.0 % Low Hct 27.0 Performed By: #### K, HH #### [place] [address] BG Collected: 03/01/2018 Status: F Source: [facility] 9:04 PM [facility] EMERGENCY DEPARTMENT REPOSITORY TYPE CODE TESTS RESULT OUT OF REFERENCE UNITS RANGE LAB PH(LOINC) 7.380-7.460 pH 7.413 LAB PCO2(LOINC 32.0-46.0 mmHg ) pCO2 36.8 LAB PO2(LOINC) 74.0-108.0 mmHg pO2 High 204.9 LAB HCO3(LOINC 21.0-29.0 mmol/L ) HCO3 23.0 LAB TCO2(LOINC 22.0-30.0 mmol/L ) CO2 Totl 24.1 LAB BE(LOINC) mmol/L Base Excess -1.4 LAB O2SAT(LOIN 92.0-96.0 % C) O2 Sat High 99.1 LAB BPRES(LOIN mmHg C) Barometric 734 Pressure Performed By: #### BG #### [place] [address] BG Collected: 03/01/2018 Status: F Source: [facility] 6:19 PM [facility] EMERGENCY DEPARTMENT REPOSITORY TYPE CODE TESTS RESULT OUT OF REFERENCE UNITS RANGE LAB PH(LOINC) 7.380-7.460 Low pH 7.361 LAB PCO2(LOINC 32.0-46.0 mmHg ) pCO2 39.6 LAB PO2(LOINC) 74.0-108.0 mmHg pO2 High 152.7 LAB HCO3(LOINC 21.0-29.0 mmol/L ) HCO3 21.9 LAB TCO2(LOINC 22.0-30.0 mmol/L ) CO2 Totl 23.1 LAB BE(LOINC) mmol/L Base Excess -3.2 LAB O2SAT(LOIN 92.0-96.0 % C) O2 Sat High 98.7 LAB BPRES(LOIN mmHg C) Barometric 731 Pressure Performed By: #### BG #### [place] [id number] BMP Collected: 03/01/2018 Status: F Source: [facility] 6:19 PM [facility] EMERGENCY DEPARTMENT REPOSITORY TYPE CODE TESTS RESULT OUT OF REFERENCE UNITS RANGE LAB GLU(LOINC) 82-115 mg/dL Glucose High Level 148 LAB NA(LOINC) 136-145 mEq/L Sodium Level 142 LAB K(LOINC) 3.5-5.0 mEq/L Potassium Level 4.6 LAB CL(LOINC) 98-110 mEq/L Chloride High 111 LAB CO2(LOINC) 22-32 mEq/L Low CO2 18 LAB EBAL(LOINC 4.0-15.0 mEq/L ) Electrolyte Balance 13.0 LAB BUN(LOINC) 8.0-22.0 mg/dL BUN High 25.0 LAB CRE(LOINC) 0.60-1.40 mg/dL Creatinine Lvl (s) 0.94 LAB BC(LOINC) 10.0-22.0 ratio High BUN/Creatinine 26.6 Ratio LAB CA(LOINC) 8.4-10.1 mg/dL Calcium Lvl 8.8 Performed By: #### BMP, GFR #### [address] [address] .GFR Collected: 03/01/2018 Status: F [facility]: [facility] 6:19 PM [facility] EMERGENCY DEPARTMENT REPOSITORY TYPE CODE TESTS RESULT OUT OF REFERENCE UNITS RANGE LAB GFRAA(LOINC ml/min/1.73 ) sqm GFR >60 Mongolian Result Comment: GFR Population mean for , Non- Americans Ages 20-29 = 116 mL/min/1.73 sq.m. Ages 30-39 = 107 mL/min/1.73 sq.m. Ages 40-49 = 99 mL/min/1.73 sq.m. Ages 50-59 = 93 mL/min/1.73 sq.m. Ages 60-69 = 85 mL/min/1.73 sq.m. Ages 70+ = 75 mL/min/1.73 sq.m. Chronic Kidney Disease: Less than 60 mL/min/1.73 square meters End Stage Renal Disease: Less than 15 mL/min/1.73 square meters LAB GFRNO(LOINC) ml/min/1.73sqm GFR Non- >60 Result Comment: GFR Population mean for , Non- Americans Ages 20-29 = 116 mL/min/1.73 sq.m. Ages 30-39 = 107 mL/min/1.73 sq.m. Ages 40-49 = 99 mL/min/1.73 sq.m. Ages 50-59 = 93 mL/min/1.73 sq.m. Ages 60-69 = 85 mL/min/1.73 sq.m. Ages 70+ = 75 mL/min/1.73 sq.m. Chronic Kidney Disease: Less than 60 mL/min/1.73 square meters End Stage Renal Disease: Less than 15 mL/min/1.73 square meters Performed By: #### BMP, GFR #### [address] [address] BG Collected: 03/01/2018 Status: F Source: [facility] 4:38 PM [facility] REPOSITORY TYPE CODE TESTS RESULT OUT OF REFERENCE UNITS RANGE LAB PH(LOINC) 7.380-7.460 pH High 7.463 LAB PCO2(LOINC 32.0-46.0 mmHg ) Low pCO2 21.0 LAB PO2(LOINC) 74.0-108.0 mmHg pO2 High 155.1 LAB HCO3(LOINC 21.0-29.0 mmol/L ) Low HCO3 14.7 LAB TCO2(LOINC 22.0-30.0 mmol/L ) Low CO2 Totl 15.3 LAB BE(LOINC) mmol/L Base Excess -7.8 LAB O2SAT(LOIN 92.0-96.0 % C) O2 Sat High 98.9 LAB BPRES(LOIN mmHg C) Barometric 734 Pressure Performed By: #### BG #### [address] [place], [place] [address] XR CHEST 1 VIEW Observed: 03/01/2018 Status: F Source: [facility] 2:48 PM [facility] EMERGENCY DEPARTMENT REPOSITORY ORIGINAL XR CHEST 1 VIEW CLINICAL STATEMENT: Check line placement. COMPARISON: Portable chest, 03/01/2018 (3:07 PM), 02/21/2018 FINDINGS: Median sternotomy wires are intact. There is a LEFT subclavian central venous catheter with the catheter tip at the level of the brachiocephalic-SVC junction. No post placement pneumothorax is identified. RIGHT and LEFT large bore thoracostomy tubes are seen with tips projecting over the upper lungs. There are 2 mediastinal drains which terminate at the level of the 3rd median sternotomy wir e, counting from superiorly. Endotracheal tube terminates approximately 5 cm above the anny. The tip of the enteric tube terminates in the mid thoracic esophagus with the side port at the level of the anny. The cardiac and mediastinal contours are within normal limits. There is no pulmonary vascular congestion, focal consolidation, or pleural effusion. No acute osseous abnormality is seen. IMPRESSION: Lines and support devices, as described. No pneumothorax or acute radiographic findings post LEFT subclavian central venous catheter placement. The enteric tube terminates within the mid thoracic esophagus and must be advanced to prevent aspiration. Drake Byrd MD called these results to the [facility] charge nurse, Lois Cornell on 03/01/2018 3:55 PM. I have personally reviewed the images of this examination and agree with the resident's findings and interpretation Interpreted By: Jay Chowdhury MD Preliminary Report By: Drake Byrd MD Electronically Signed By: Jay Chowdhury MD Dictated Date: 03/01/2018 3:50:33 PM Prelim Date: 03/01/2018 3:57:42 PM Sign Date: 03/01/2018 4:19:29 PM XR CHEST 1 VIEW Observed: 03/01/2018 Status: F Source: [facility] 2:48 PM [facility] EMERGENCY DEPARTMENT REPOSITORY ORIGINAL XR CHEST 1 VIEW CLINICAL STATEMENT: Check NG tube placement COMPARISON: None FINDINGS:Nasogastric tube is not identified on today's exam. Multiple monitor leads and chest tubes compromising evaluation. Nonspecific bowel gas pattern with motion artifact compromising evaluation is noted. IMPRESSION:Suboptimal diagnostic information with nonvisualization of the nasogastric tube. Repeat imaging perhaps centered slightly superiorly would be useful Interpreted By: Siri Kowalski MD Preliminary Report By: Siri Kowalski MD Electronically Signed By: Siri Kowalski MD Dictated Date: 03/01/2018 3:27:19 PM Prelim Date: 03/01/2018 3:27:19 PM Sign Date: 03/01/2018 3:28:01 PM CAION Collected: 03/01/2018 Status: F Source: [facility] 2:42 PM [facility] EMERGENCY DEPARTMENT REPOSITORY TYPE CODE TESTS RESULT OUT OF REFERENCE UNITS RANGE LAB CAION(LOINC 1.12-1.32 mmol/L ) Low Calcium 1.11 Ionized Performed By: #### CAION, HH, MG, PHOS, BMP, GFR #### [place] [address] HH Collected: 03/01/2018 Status: F Source: [facility] 2:42 [facility] REPOSITORY TYPE CODE TESTS RESULT OUT OF RANGE REFERENCE UNITS LAB HGB(LOINC) 13.0-17.5 G/dL Low Hgb 10.8 LAB HCT(LOINC) 40.0-52.0 % Low Hct 32.0 Performed By: #### CAION, HH, MG, PHOS, BMP, GFR #### [place] [address] MG Collected: 03/01/2018 Status: F Source: [facility] 2:42 [facility] REPOSITORY TYPE CODE TESTS RESULT OUT OF REFERENCE UNITS RANGE LAB MG(LOINC) 1.6-2.4 mg/dL High Magnesium Lvl 2.8 Performed By: #### CAION, HH, MG, PHOS, BMP, GFR #### [place] [address] PHOS Collected: 03/01/2018 Status: F Source: [facility] 2:42 PM [facility] EMERGENCY DEPARTMENT REPOSITORY TYPE CODE TESTS RESULT OUT OF REFERENCE UNITS RANGE LAB PHOS(LOINC 2.5-4.5 mg/dL ) Phosphorus 3.4 Performed By: #### CAION, HH, MG, PHOS, BMP, GFR #### [place] [address] BMP Collected: 03/01/2018 Status: F Source: [facility] 2:42 PM [facility] EMERGENCY DEPARTMENT REPOSITORY TYPE CODE TESTS RESULT OUT OF REFERENCE UNITS RANGE LAB GLU(LOINC) 82-115 mg/dL Glucose High Level 120 LAB NA(LOINC) 136-145 mEq/L Sodium Level 142 LAB K(LOINC) 3.5-5.0 mEq/L Potassium Level 4.6 LAB CL(LOINC) 98-110 mEq/L Chloride High 111 LAB CO2(LOINC) 22-32 mEq/L Low CO2 21 LAB EBAL(LOINC 4.0-15.0 mEq/L ) Electrolyte Balance 10.0 LAB BUN(LOINC) 8.0-22.0 mg/dL BUN High 23.0 LAB CRE(LOINC) 0.60-1.40 mg/dL Creatinine Lvl (s) 0.96 LAB BC(LOINC) 10.0-22.0 ratio High BUN/Creatinine 24.0 Ratio LAB CA(LOINC) 8.4-10.1 mg/dL Calcium Lvl 8.8 Performed By: #### CAICATALINO, HH, MG, PHOS, BMP, GFR #### [place] [address] .GFR Collected: 03/01/2018 Status: F Source: [facility] 2:42 PM [facility] REPOSITORY TYPE CODE TESTS RESULT OUT OF REFERENCE UNITS RANGE LAB GFRAA(LOINC ml/min/1.73 ) sqm GFR >60 Mongolian Result Comment: GFR Population mean for , Non- Americans Ages 20-29 = 116 mL/min/1.73 sq.m. Ages 30-39 = 107 mL/min/1.73 sq.m. Ages 40-49 = 99 mL/min/1.73 sq.m. Ages 50-59 = 93 mL/min/1.73 sq.m. Ages 60-69 = 85 mL/min/1.73 sq.m. Ages 70+ = 75 mL/min/1.73 sq.m. Chronic Kidney Disease: Less than 60 mL/min/1.73 square meters End Stage Renal Disease: Less than 15 mL/min/1.73 square meters LAB GFRNO(LOINC) ml/min/1.73sqm GFR Non- >60 Result Comment: GFR Population mean for , Non- Americans Ages 20-29 = 116 mL/min/1.73 sq.m. Ages 30-39 = 107 mL/min/1.73 sq.m. Ages 40-49 = 99 mL/min/1.73 sq.m. Ages 50-59 = 93 mL/min/1.73 sq.m. Ages 60-69 = 85 mL/min/1.73 sq.m. Ages 70+ = 75 mL/min/1.73 sq.m. Chronic Kidney Disease: Less than 60 mL/min/1.73 square meters End Stage Renal Disease: Less than 15 mL/min/1.73 square meters Performed By: #### CAION, HH, MG, PHOS, BMP, GFR #### [address] [address] BG Collected: 03/01/2018 Status: F Source: [facility] 2:42 PM [facility] EMERGENCY DEPARTMENT REPOSITORY Order Comment: [facility] TYPE CODE TESTS RESULT OUT OF REFERENCE UNITS RANGE LAB PH(LOINC) 7.380-7.460 pH 7.434 LAB PCO2(LOINC 32.0-46.0 mmHg ) pCO2 34.3 LAB PO2(LOINC) 74.0-108.0 mmHg pO2 High 297.5 LAB HCO3(LOINC 21.0-29.0 mmol/L ) HCO3 22.5 LAB TCO2(LOINC 22.0-30.0 mmol/L ) CO2 Totl 23.5 LAB BE(LOINC) mmol/L Base Excess -1.3 LAB O2SAT(LOIN 92.0-96.0 % C) O2 Sat High 99.3 LAB BPRES(LOIN mmHg C) Barometric 735 Pressure Performed By: #### BG #### [address] [address] BGRP Collected: 03/01/2018 Status: F Source: [facility] 1:57 PM [facility] EMERGENCY DEPARTMENT REPOSITORY TYPE CODE TESTS RESULT OUT OF REFERENCE UNITS RANGE LAB PHRP(LOINC 7.380-7.460 ) pH (poct) - POC 7.393 LAB PCORP(LOIN 32.0-46.0 mmHg C) PCO2 - POC 37.2 LAB PO2RP(LOIN 74.0-108.0 mmHg C) PO2 - POC High 306.7 LAB HCORP(LOIN 21.0-29.0 mmol/L C) Bicarbonate - POC 22.2 LAB TCORP(LOIN 22.0-30.0 mmol/L C) Total CO2 - POC 23.3 LAB BERP(LOINC mmol/L ) Base Excess - POC -2.4 LAB O2RP(LOINC 92.0-96.0 % ) O2 High Saturation - POC 98.6 Performed By: #### BGRP, CLRP, HGBRP, GLURP, KRP, HCTRP, NARP, CARP #### [place] [address] CLRP Collected: 03/01/2018 Status: F Source: [facility] 1:57 PM [facility] EMERGENCY DEPARTMENT REPOSITORY TYPE CODE TESTS RESULT OUT OF REFERENCE UNITS RANGE LAB CLRP(LOINC) 98-110 mEq/L Chloride - POC 108 Performed By: #### BGRP, CLRP, HGBRP, GLURP, KRP, HCTRP, NARP, CARP #### [place] [address] HGBRP Collected: 03/01/2018 Status: F Source: [facility] 1:57 PM [facility] EMERGENCY DEPARTMENT REPOSITORY TYPE CODE TESTS RESULT OUT OF REFERENCE UNITS RANGE LAB HGBRP(LOIN 13.0-17.5 G/dL C) Low Hemoglobin - POC 10.5 Performed By: #### BGRP, CLRP, HGBRP, GLURP, KRP, HCTRP, NARP, CARP #### [place] [address] GLURP Collected: 03/01/2018 Status: F Source: [facility] 1:57 PM [facility] EMERGENCY DEPARTMENT REPOSITORY TYPE CODE TESTS RESULT OUT OF REFERENCE UNITS RANGE LAB GLURP(LOINC 82-115 mg/dL ) Low Glucose - POC 70 Performed By: #### BGRP, CLRP, HGBRP, GLURP, KRP, HCTRP, NARP, CARP #### [place] [address] KRP Collected: 03/01/2018 Status: F Source: [facility] 1:57 PM [facility] EMERGENCY DEPARTMENT REPOSITORY TYPE CODE TESTS RESULT OUT OF REFERENCE UNITS RANGE LAB KRP(LOINC) 3.5-5.0 mEq/L Potassium - POC 4.6 Performed By: #### BGRP, CLRP, HGBRP, GLURP, KRP, HCTRP, NARP, CARP #### [place] [address] HCTRP Collected: 03/01/2018 Status: F Source: [facility] 1:57 PM [facility] EMERGENCY DEPARTMENT REPOSITORY TYPE CODE TESTS RESULT OUT OF REFERENCE UNITS RANGE LAB HCTRP(LOIN 42.0-52.0 % C) Low Hematocrit - POC 31.0 Performed By: #### BGRP, CLRP, HGBRP, GLURP, KRP, HCTRP, NARP, CARP #### [place] [address] NARP Collected: 03/01/2018 Status: F Source: [facility] 1:57 PM [facility] EMERGENCY DEPARTMENT REPOSITORY TYPE CODE TESTS RESULT OUT OF REFERENCE UNITS RANGE LAB NARP(LOINC) 136-145 mEq/L Sodium - POC 137 Performed By: #### BGRP, CLRP, HGBRP, GLURP, KRP, HCTRP, NARP, CARP #### [place] [address] CARP Collected: 03/01/2018 Status: F Source: [facility] 1:57 [facility] REPOSITORY TYPE CODE TESTS RESULT OUT OF REFERENCE UNITS RANGE LAB CARP(LOINC) 1.12-1.32 mmol/L Ionized 1.25 Calcium - POC Performed By: #### BGRP, CLRP, HGBRP, GLURP, KRP, HCTRP, NARP, CARP #### [place] [address] BGRP Collected: 03/01/2018 Status: F Source: [facility] 1:26 PM [facility] EMERGENCY DEPARTMENT REPOSITORY TYPE CODE TESTS RESULT OUT OF REFERENCE UNITS RANGE LAB PHRP(LOINC 7.380-7.460 ) pH (poct) - POC 7.404 LAB PCORP(LOIN 32.0-46.0 mmHg C) PCO2 - POC 37.4 LAB PO2RP(LOIN 74.0-108.0 mmHg C) PO2 - POC High 325.3 LAB HCORP(LOIN 21.0-29.0 mmol/L C) Bicarbonate - POC 22.9 LAB TCORP(LOIN 22.0-30.0 mmol/L C) Total CO2 - POC 24.0 LAB BERP(LOINC mmol/L ) Base Excess - POC -1.6 LAB O2RP(LOINC 92.0-96.0 % ) O2 High Saturation - POC 98.5 Performed By: #### BGRP, CLRP, HGBRP, GLURP, KRP, HCTRP, NARP, CARP #### [place] [address] CLRP Collected: 03/01/2018 Status: F Source: [facility] 1:26 PM [facility] EMERGENCY DEPARTMENT REPOSITORY TYPE CODE TESTS RESULT OUT OF REFERENCE UNITS RANGE LAB CLRP(LOINC) 98-110 mEq/L Chloride - POC 108 Performed By: #### BGRP, CLRP, HGBRP, GLURP, KRP, HCTRP, NARP, CARP #### [place] [address] HGBRP Collected: 03/01/2018 Status: F Source: [facility] 1:26 PM [facility] EM[facility] REPOSITORY TYPE CODE TESTS RESULT OUT OF REFERENCE UNITS RANGE LAB HGBRP(LOIN 13.0-17.5 G/dL C) Low Hemoglobin - POC 9.4 Performed By: #### BGRP, CLRP, HGBRP, GLURP, KRP, HCTRP, NARP, CARP #### [place] [address] GLURP Collected: 03/01/2018 Status: F Source: [facility] 1:26 PM [facility] EM[facility]ENC[facility]PART[facility] REPOSITORY TYPE CODE TESTS RESULT OUT OF REFERENCE UNITS RANGE LAB GLURP(LOINC 82-115 mg/dL ) Glucose - POC 86 Performed By: #### BGRP, CLRP, HGBRP, GLURP, KRP, HCTRP, NARP, CARP #### [place] [address] KRP Collected: 03/01/2018 Status: F Source: [facility] 1:26 PM [facility] EM[facility]GENC[facility]PART[facility] REPOSITORY TYPE CODE TESTS RESULT OUT OF REFERENCE UNITS RANGE LAB KRP(LOINC) 3.5-5.0 mEq/L Potassium - POC 4.5 Performed By: #### BGRP, CLRP, HGBRP, GLURP, KRP, HCTRP, NARP, CARP #### [place] [address] HCTRP Collected: 03/01/2018 Status: F Source: [facility] 1:26 PM [facility] EMERGENC[facility]PARTMENT REPOSITORY TYPE CODE TESTS RESULT OUT OF REFERENCE UNITS RANGE LAB HCTRP(LOIN 42.0-52.0 % C) Low Hematocrit - POC 28.0 Performed By: #### BGRP, CLRP, HGBRP, GLURP, KRP, HCTRP, NARP, CARP #### [place] [address] NARP Collected: 03/01/2018 Status: F Source: [facility] 1:26 PM [facility] EM[facility]ENC[facility]PART[facility] REPOSITORY TYPE CODE TESTS RESULT OUT OF REFERENCE UNITS RANGE LAB NARP(LOINC) 136-145 mEq/L Sodium - POC 136 Performed By: #### BGRP, CLRP, HGBRP, GLURP, KRP, HCTRP, NARP, CARP #### [place] [address] CARP Collected: 03/01/2018 Status: F Source: [facility] 1:26 [facility] REPOSITORY TYPE CODE TESTS RESULT OUT OF REFERENCE UNITS RANGE LAB CARP(LOINC) 1.12-1.32 mmol/L Ionized 1.27 Calcium - POC Performed By: #### BGRP, CLRP, HGBRP, GLURP, KRP, HCTRP, NARP, CARP #### [place] [address] BGRP Collected: 03/01/2018 Status: F Source: [facility] 12:34 PM [facility] EMERGENCY DEPARTMENT REPOSITORY TYPE CODE TESTS RESULT OUT OF REFERENCE UNITS RANGE LAB PHRP(LOINC 7.380-7.460 ) Low pH (poct) - POC 7.357 LAB PCORP(LOIN 32.0-46.0 mmHg C) PCO2 - POC 43.5 LAB PO2RP(LOIN 74.0-108.0 mmHg C) PO2 - POC High 406.7 LAB HCORP(LOIN 21.0-29.0 mmol/L C) Bicarbonate - POC 23.9 LAB TCORP(LOIN 22.0-30.0 mmol/L C) Total CO2 - POC 25.2 LAB BERP(LOINC mmol/L ) Base Excess - POC -1.6 LAB O2RP(LOINC 92.0-96.0 % ) O2 High Saturation - POC 98.6 Performed By: #### BGRP, CLRP, HGBRP, GLURP, KRP, HCTRP, NARP, CARP #### [place] [address] CLRP Collected: 03/01/2018 Status: F Source: [facility] 12:34 PM [facility] EMERGENCY DEPARTMENT REPOSITORY TYPE CODE TESTS RESULT OUT OF REFERENCE UNITS RANGE LAB CLRP(LOINC) 98-110 mEq/L Chloride - POC 107 Performed By: #### BGRP, CLRP, HGBRP, GLURP, KRP, HCTRP, NARP, CARP #### [place] [address] HGBRP Collected: 03/01/2018 Status: F Source: [facility] 12:34 [facility] REPOSITORY TYPE CODE TESTS RESULT OUT OF REFERENCE UNITS RANGE LAB HGBRP(LOIN 13.0-17.5 G/dL C) Low Hemoglobin - POC 9.4 Performed By: #### BGRP, CLRP, HGBRP, GLURP, KRP, HCTRP, NARP, CARP #### [place] [address] GLURP Collected: 03/01/2018 Status: F Source: [facility] 12:34 [facility] REPOSITORY TYPE CODE TESTS RESULT OUT OF REFERENCE UNITS RANGE LAB GLURP(LOINC 82-115 mg/dL ) High Glucose - POC 121 Performed By: #### BGRP, CLRP, HGBRP, GLURP, KRP, HCTRP, NARP, CARP #### [place] [address] KRP Collected: 03/01/2018 Status: F Source: [facility] 12:34 PM [facility] EMERGENCY DEPARTMENT REPOSITORY TYPE CODE TESTS RESULT OUT OF REFERENCE UNITS RANGE LAB KRP(LOINC) 3.5-5.0 mEq/L High Potassium - POC 5.2 Performed By: #### BGRP, CLRP, HGBRP, GLURP, KRP, HCTRP, NARP, CARP #### [place] [address] HCTRP Collected: 03/01/2018 Status: F Source: [facility] 12:34 [facility] REPOSITORY TYPE CODE TESTS RESULT OUT OF REFERENCE UNITS RANGE LAB HCTRP(LOIN 42.0-52.0 % C) Low Hematocrit - POC 28.0 Performed By: #### BGRP, CLRP, HGBRP, GLURP, KRP, HCTRP, NARP, CARP #### [place] [address] NARP Collected: 03/01/2018 Status: F Source: [facility] 12:34 PM [facility] EMERGENCY DEPARTMENT REPOSITORY TYPE CODE TESTS RESULT OUT OF REFERENCE UNITS RANGE LAB NARP(LOINC) 136-145 mEq/L Low Sodium - POC 135 Performed By: #### BGRP, CLRP, HGBRP, GLURP, KRP, HCTRP, NARP, CARP #### [place] [address] CARP Collected: 03/01/2018 Status: F Source: [facility] 12:34 PM [facility] EMERGENCY DEPARTMENT REPOSITORY TYPE CODE TESTS RESULT OUT OF REFERENCE UNITS RANGE LAB CARP(LOINC) 1.12-1.32 mmol/L Ionized 1.13 Calcium - POC Performed By: #### BGRP, CLRP, HGBRP, GLURP, KRP, HCTRP, NARP, CARP #### [place] [address] BGRP Collected: 03/01/2018 Status: F Source: [facility] 12:05 [facility] REPOSITORY TYPE CODE TESTS RESULT OUT OF REFERENCE UNITS RANGE LAB PHRP(LOINC 7.380-7.460 ) Low pH (poct) - POC 7.370 LAB PCORP(LOIN 32.0-46.0 mmHg C) PCO2 - POC 41.1 LAB PO2RP(LOIN 74.0-108.0 mmHg C) PO2 - POC High 347.5 LAB HCORP(LOIN 21.0-29.0 mmol/L C) Bicarbonate - POC 23.2 LAB TCORP(LOIN 22.0-30.0 mmol/L C) Total CO2 - POC 24.5 LAB BERP(LOINC mmol/L ) Base Excess - POC -1.9 LAB O2RP(LOINC 92.0-96.0 % ) O2 High Saturation - POC 98.5 Performed By: #### BGRP, CLRP, HGBRP, GLURP, KRP, HCTRP, NARP, CARP #### [place] [address] CLRP Collected: 03/01/2018 Status: F Source: [facility] 12:05 [facility] REPOSITORY TYPE CODE TESTS RESULT OUT OF REFERENCE UNITS RANGE LAB CLRP(LOINC) 98-110 mEq/L Chloride - POC 107 Performed By: #### BGRP, CLRP, HGBRP, GLURP, KRP, HCTRP, NARP, CARP #### [place] [address] HGBRP Collected: 03/01/2018 Status: F Source: [facility] 12:05 [facility] REPOSITORY TYPE CODE TESTS RESULT OUT OF REFERENCE UNITS RANGE LAB HGBRP(LOIN 13.0-17.5 G/dL C) Low Hemoglobin - POC 9.1 Performed By: #### BGRP, CLRP, HGBRP, GLURP, KRP, HCTRP, NARP, CARP #### [place] [address] GLURP Collected: 03/01/2018 Status: F Source: [facility] 12:[address] [place] [address] REPOSITORY TYPE CODE TESTS RESULT OUT OF REFERENCE UNITS RANGE LAB GLURP(LOINC 82-115 mg/dL ) High Glucose - POC 138 Performed By: #### BGRP, CLRP, HGBRP, GLURP, KRP, HCTRP, NARP, CARP #### [place] [address] KRP Collected: 03/01/2018 Status: F Source: [facility] 12:05 [facility] REPOSITORY TYPE CODE TESTS RESULT OUT OF REFERENCE UNITS RANGE LAB KRP(LOINC) 3.5-5.0 mEq/L Potassium - POC 4.9 Performed By: #### BGRP, CLRP, HGBRP, GLURP, KRP, HCTRP, NARP, CARP #### [place] [address] HCTRP Collected: 03/01/2018 Status: F Source: [facility] 12:05 [facility] REPOSITORY TYPE CODE TESTS RESULT OUT OF REFERENCE UNITS RANGE LAB HCTRP(LOIN 42.0-52.0 % C) Low Hematocrit - POC 27.0 Performed By: #### BGRP, CLRP, HGBRP, GLURP, KRP, HCTRP, NARP, CARP #### [place] [address] NARP Collected: 03/01/2018 Status: F Source: [facility] 12:05 PM [facility] EMERGENCY DEPARTMENT REPOSITORY TYPE CODE TESTS RESULT OUT OF REFERENCE UNITS RANGE LAB NARP(LOINC) 136-145 mEq/L Low Sodium - POC 135 Performed By: #### BGRP, CLRP, HGBRP, GLURP, KRP, HCTRP, NARP, CARP #### [place] [address] CARP Collected: 03/01/2018 Status: F Source: [facility] 12:05 PM [facility] EMERGENCY DEPARTMENT REPOSITORY TYPE CODE TESTS RESULT OUT OF REFERENCE UNITS RANGE LAB CARP(LOINC) 1.12-1.32 mmol/L Ionized 1.12 Calcium - POC Performed By: #### BGRP, CLRP, HGBRP, GLURP, KRP, HCTRP, NARP, CARP #### [place] [address] BGRP Collected: 03/01/2018 Status: F Source: [facility] [employer] [facility] 11:34 AM [facility] EMERGENCY DEPARTMENT REPOSITORY TYPE CODE TESTS RESULT OUT OF REFERENCE UNITS RANGE LAB PHRP(LOINC 7.380-7.460 ) pH (poct) - POC 7.402 LAB PCORP(LOIN 32.0-46.0 mmHg C) PCO2 - POC 34.6 LAB PO2RP(LOIN 74.0-108.0 mmHg C) PO2 - POC High 332.7 LAB HCORP(LOIN 21.0-29.0 mmol/L C) Bicarbonate - POC 21.0 LAB TCORP(LOIN 22.0-30.0 mmol/L C) Total CO2 - POC 22.1 LAB BERP(LOINC mmol/L ) Base Excess - POC -3.2 LAB O2RP(LOINC 92.0-96.0 % ) O2 High Saturation - POC 98.7 Performed By: #### BGRP, CLRP, HGBRP, GLURP, KRP, HCTRP, NARP, CARP #### [place] [address] CLRP Collected: 03/01/2018 Status: F Source: [facility] 11:34 AM [facility] EMERGENCY DEPARTMENT REPOSITORY TYPE CODE TESTS RESULT OUT OF REFERENCE UNITS RANGE LAB CLRP(LOINC) 98-110 mEq/L Chloride - POC 105 Performed By: #### BGRP, CLRP, HGBRP, GLURP, KRP, HCTRP, NARP, CARP #### [place] [address] HGBRP Collected: 03/01/2018 Status: F Source: [facility] 11:34 AM [facility] EMERGENCY DEPARTMENT REPOSITORY TYPE CODE TESTS RESULT OUT OF REFERENCE UNITS RANGE LAB HGBRP(LOIN 13.0-17.5 G/dL C) Low Hemoglobin - POC 9.4 Performed By: #### BGRP, CLRP, HGBRP, GLURP, KRP, HCTRP, NARP, CARP #### [place] [address] GLURP Collected: 03/01/2018 Status: F Source: [facility] 11:34 AM [facility] EMERGENCY DEPARTMENT REPOSITORY TYPE CODE TESTS RESULT OUT OF REFERENCE UNITS RANGE LAB GLURP(LOINC 82-115 mg/dL ) High Glucose - POC 149 Performed By: #### BGRP, CLRP, HGBRP, GLURP, KRP, HCTRP, NARP, CARP #### [place] [address] KRP Collected: 03/01/2018 Status: F Source: [facility] 11:34 AM [facility] EMERGENCY DEPARTMENT REPOSITORY TYPE CODE TESTS RESULT OUT OF REFERENCE UNITS RANGE LAB KRP(LOINC) 3.5-5.0 mEq/L Potassium - POC 4.9 Performed By: #### BGRP, CLRP, HGBRP, GLURP, KRP, HCTRP, NARP, CARP #### [place] [address] HCTRP Collected: 03/01/2018 Status: F Source: [facility] 11:34 AM [facility] EMERGENCY DEPARTMENT REPOSITORY TYPE CODE TESTS RESULT OUT OF REFERENCE UNITS RANGE LAB HCTRP(LOIN 42.0-52.0 % C) Low Hematocrit - POC 28.0 Performed By: #### BGRP, CLRP, HGBRP, GLURP, KRP, HCTRP, NARP, CARP #### [place] [address] NARP Collected: 03/01/2018 Status: F Source: [facility] 11:34 AM [facility] EMERGENCY DEPARTMENT REPOSITORY TYPE CODE TESTS RESULT OUT OF REFERENCE UNITS RANGE LAB NARP(LOINC) 136-145 mEq/L Low Sodium - POC 134 Performed By: #### BGRP, CLRP, HGBRP, GLURP, KRP, HCTRP, NARP, CARP #### [place] [address] CARP Collected: 03/01/2018 Status: F Source: [facility] 11:34 AM [facility] EMERGENCY DEPARTMENT REPOSITORY TYPE CODE TESTS RESULT OUT OF REFERENCE UNITS RANGE LAB CARP(LOINC) 1.12-1.32 mmol/L Ionized 1.13 Calcium - POC Performed By: #### BGRP, CLRP, HGBRP, GLURP, KRP, HCTRP, NARP, CARP #### [place] [address] FINAL SURGICAL Observed: 03/01/2018 Status: F Source: [facility] PATHOLOGY REPORT 11:20 AM [facility] EMERGENCY DEPARTMENT REPOSITORY . Pathology Reports Accession: Collected Date/Time: Received Date/Time: Pathologist: [id number] 03/01/2018 11:20 EDT 03/02/2018 07:55 EDT MD CLAUS PINON Final Surgical Pathology Report DIAGNOSIS: AORTIC VALVE: - AORTIC VALVE TISSUE WITH DYSTROPHIC CALCIFICATION AND FOCAL OSSEOUS METAPLASIA. CLINICAL INFORMATION: PROCEDURE: CORONARY ARTERY BYPASS GRAFT USING THE LEFT INTERNAL MAMMARY ARTERY AND THE RIGHT GREATER SAPHENOUS VEIN VIA ENDOSCOPY HARVEST / AORTIC VALVE REPLACED WITH ZARAGOZA MAGNA EASE PREOP DIAGNOSIS: CORONARY ARTERY DISEASE; AORTIC STENOSIS POSTOP DIAGNOSIS: SAME SPECIMEN: A HEART VALVE - AORTIC VALVE GROSS DESCRIPTION: _Received in formalin labeled aortic valve are three heart valve cusps ranging from 2 x 0.8 cm to 3 x 1 cm. The tissue ranges from owens to yellow and from supple to nodular and focally calcified. No vegetations are grossly identified. Also received is a 5 x 1 x 0.8 cm aggregate of owens- yellow, soft and focally calcified fragments. A u.s. representative section of each cusp is submitted following decalcification in one cassette. Dictated by Reyna SEARS ([facility]) MICROSCOPIC DESCRIPTION: Slides reviewed. Electronically Signed by Pathology Report verified by [facility] Electronically signed by CLAUS PINON MD Sign out Date: 03/03/2018 16:08 Performing Lab: [place] [id number] [place] Performed By: #### SPFR #### [place] [address] BGRP Collected: 03/01/2018 Status: F Source: [facility] 11:07 AM [facility] EMERGENCY DEPARTMENT REPOSITORY TYPE CODE TESTS RESULT OUT OF REFERENCE UNITS RANGE LAB PHRP(LOINC 7.380-7.460 ) pH (poct) - POC 7.400 LAB PCORP(LOIN 32.0-46.0 mmHg C) PCO2 - POC 39.5 LAB PO2RP(LOIN 74.0-108.0 mmHg C) PO2 - POC High 352.9 LAB HCORP(LOIN 21.0-29.0 mmol/L C) Bicarbonate - POC 23.9 LAB TCORP(LOIN 22.0-30.0 mmol/L C) Total CO2 - POC 25.1 LAB BERP(LOINC mmol/L ) Base Excess - POC -0.8 LAB O2RP(LOINC 92.0-96.0 % ) O2 High Saturation - POC 98.5 Performed By: #### BGRP, CLRP, HGBRP, GLURP, KRP, HCTRP, NARP, CARP #### [place] [address] CLRP Collected: 03/01/2018 Status: F Source: [facility] 11:07 AM [facility] EMERGENCY DEPARTMENT REPOSITORY TYPE CODE TESTS RESULT OUT OF REFERENCE UNITS RANGE LAB CLRP(LOINC) 98-110 mEq/L Chloride - POC 105 Performed By: #### BGRP, CLRP, HGBRP, GLURP, KRP, HCTRP, NARP, CARP #### [place] [address] HGBRP Collected: 03/01/2018 Status: F Source: [facility] 11:07 AM [facility] EMERGENCY DEPARTMENT REPOSITORY TYPE CODE TESTS RESULT OUT OF REFERENCE UNITS RANGE LAB HGBRP(LOIN 13.0-17.5 G/dL C) Low Hemoglobin - POC 9.5 Performed By: #### BGRP, CLRP, HGBRP, GLURP, KRP, HCTRP, NARP, CARP #### [place] [address] GLURP Collected: 03/01/2018 Status: F Source: [facility] 11:07 AM [facility] EMERGENCY DEPARTMENT REPOSITORY TYPE CODE TESTS RESULT OUT OF REFERENCE UNITS RANGE LAB GLURP(LOINC 82-115 mg/dL ) High Glucose - POC 167 Performed By: #### BGRP, CLRP, HGBRP, GLURP, KRP, HCTRP, NARP, CARP #### [place] [address] KRP Collected: 03/01/2018 Status: F Source: [facility] 11:07 AM [facility] EMERGENCY DEPARTMENT REPOSITORY TYPE CODE TESTS RESULT OUT OF REFERENCE UNITS RANGE LAB KRP(LOINC) 3.5-5.0 mEq/L High Potassium - POC 5.5 Performed By: #### BGRP, CLRP, HGBRP, GLURP, KRP, HCTRP, NARP, CARP #### [place] [address] HCTRP Collected: 03/01/2018 Status: F Source: [facility] 11:07 AM [facility] EMERGENCY DEPARTMENT REPOSITORY TYPE CODE TESTS RESULT OUT OF REFERENCE UNITS RANGE LAB HCTRP(LOIN 42.0-52.0 % C) Low Hematocrit - POC 28.0 Performed By: #### BGRP, CLRP, HGBRP, GLURP, KRP, HCTRP, NARP, CARP #### [place] [address] NARP Collected: 03/01/2018 Status: F Source: [facility] 11:07 AM [facility] EMERGENCY DEPARTMENT REPOSITORY TYPE CODE TESTS RESULT OUT OF REFERENCE UNITS RANGE LAB NARP(LOINC) 136-145 mEq/L Low Sodium - POC 133 Performed By: #### BGRP, CLRP, HGBRP, GLURP, KRP, HCTRP, NARP, CARP #### [place] [address] CARP Collected: 03/01/2018 Status: F Source: [facility] 11:07 AM [facility] EMERGENCY DEPARTMENT REPOSITORY TYPE CODE TESTS RESULT OUT OF REFERENCE UNITS RANGE LAB CARP(LOINC) 1.12-1.32 mmol/L Low Ionized 1.11 Calcium - POC Performed By: #### BGRP, CLRP, HGBRP, GLURP, KRP, HCTRP, NARP, CARP #### [place] [address] BGRP Collected: 03/01/2018 Status: F Source: [employer] 10:39 AM [facility] EMERGENCY DEPARTMENT REPOSITORY TYPE CODE TESTS RESULT OUT OF REFERENCE UNITS RANGE LAB PHRP(LOINC 7.380-7.460 ) pH (poct) - POC 7.416 LAB PCORP(LOIN 32.0-46.0 mmHg C) PCO2 - POC 39.4 LAB PO2RP(LOIN 74.0-108.0 mmHg C) PO2 - POC High 432.7 LAB HCORP(LOIN 21.0-29.0 mmol/L C) Bicarbonate - POC 24.8 LAB TCORP(LOIN 22.0-30.0 mmol/L C) Total CO2 - POC 26.0 LAB BERP(LOINC mmol/L ) Base Excess - POC 0.3 LAB O2RP(LOINC 92.0-96.0 % ) O2 High Saturation - POC 98.7 Performed By: #### BGRP, CLRP, HGBRP, GLURP, KRP, HCTRP, NARP, CARP #### [place] [address] CLRP Collected: 03/01/2018 Status: F Source: [facility] 10:39 AM [facility] EMERGENCY DEPARTMENT REPOSITORY TYPE CODE TESTS RESULT OUT OF REFERENCE UNITS RANGE LAB CLRP(LOINC) 98-110 mEq/L Chloride - POC 104 Performed By: #### BGRP, CLRP, HGBRP, GLURP, KRP, HCTRP, NARP, CARP #### [place] [address] HGBRP Collected: 03/01/2018 Status: F Source: [employer] 10:39 AM [facility] EMERGENCY DEPARTMENT REPOSITORY TYPE CODE TESTS RESULT OUT OF REFERENCE UNITS RANGE LAB HGBRP(LOIN 13.0-17.5 G/dL C) Low Hemoglobin - POC 9.9 Performed By: #### BGRP, CLRP, HGBRP, GLURP, KRP, HCTRP, NARP, CARP #### [place] [address] GLURP Collected: 03/01/2018 Status: F Source: [employer] 10:39 AM [facility] EMERGENCY DEPARTMENT REPOSITORY TYPE CODE TESTS RESULT OUT OF REFERENCE UNITS RANGE LAB GLURP(LOINC 82-115 mg/dL ) High Glucose - POC 152 Performed By: #### BGRP, CLRP, HGBRP, GLURP, KRP, HCTRP, NARP, CARP #### [place] [address] KRP Collected: 03/01/2018 Status: F Source: [facility] 10:39 AM [facility] EMERGENCY DEPARTMENT REPOSITORY TYPE CODE TESTS RESULT OUT OF REFERENCE UNITS RANGE LAB KRP(LOINC) 3.5-5.0 mEq/L High Potassium - POC 5.2 Performed By: #### BGRP, CLRP, HGBRP, GLURP, KRP, HCTRP, NARP, CARP #### [place] [address] HCTRP Collected: 03/01/2018 Status: F Source: [facility] 10:39 AM [facility] EMERGENCY DEPARTMENT REPOSITORY TYPE CODE TESTS RESULT OUT OF REFERENCE UNITS RANGE LAB HCTRP(LOIN 42.0-52.0 % C) Low Hematocrit - POC 29.0 Performed By: #### BGRP, CLRP, HGBRP, GLURP, KRP, HCTRP, NARP, CARP #### [place] [address] NARP Collected: 03/01/2018 Status: F Source: [facility] 10:39 AM [facility] EMERGENCY DEPARTMENT REPOSITORY TYPE CODE TESTS RESULT OUT OF REFERENCE UNITS RANGE LAB NARP(LOINC) 136-145 mEq/L Low Sodium - POC 133 Performed By: #### BGRP, CLRP, HGBRP, GLURP, KRP, HCTRP, NARP, CARP #### [place] [address] CARP Collected: 03/01/2018 Status: F Source: [facility] 10:39 AM [facility] EMERGENCY DEPARTMENT REPOSITORY TYPE CODE TESTS RESULT OUT OF REFERENCE UNITS RANGE LAB CARP(LOINC) 1.12-1.32 mmol/L Low Ionized 1.11 Calcium - POC Performed By: #### BGRP, CLRP, HGBRP, GLURP, KRP, HCTRP, NARP, CARP #### [place] [address] CLRP Collected: 03/01/2018 Status: F Source: [facility] 10:15 AM [facility] EMERGENCY DEPARTMENT REPOSITORY TYPE CODE TESTS RESULT OUT OF REFERENCE UNITS RANGE LAB CLRP(LOINC) 98-110 mEq/L Chloride - POC 104 Performed By: #### CLRP, HGBRP, GLURP, KRP, HCTRP, NARP, CARP, BGRP #### [place] [address] HGBRP Collected: 03/01/2018 Status: F Source: [facility] 10:15 AM [facility] EMERGENCY DEPARTMENT REPOSITORY TYPE CODE TESTS RESULT OUT OF REFERENCE UNITS RANGE LAB HGBRP(LOIN 13.0-17.5 G/dL C) Low Hemoglobin - POC 8.6 Performed By: #### CLRP, HGBRP, GLURP, KRP, HCTRP, NARP, CARP, BGRP #### [place] [address] GLURP Collected: 03/01/2018 Status: F Source: [facility] 10:15 AM [facility] EMERGENCY DEPARTMENT REPOSITORY TYPE CODE TESTS RESULT OUT OF REFERENCE UNITS RANGE LAB GLURP(LOINC 82-115 mg/dL ) High Glucose - POC 128 Performed By: #### CLRP, HGBRP, GLURP, KRP, HCTRP, NARP, CARP, BGRP #### [place] [address] KRP Collected: 03/01/2018 Status: F Source: [facility] 10:15 AM [facility] EMERGENCY DEPARTMENT REPOSITORY TYPE CODE TESTS RESULT OUT OF REFERENCE UNITS RANGE LAB KRP(LOINC) 3.5-5.0 mEq/L High Potassium - POC 5.3 Performed By: #### CLRP, HGBRP, GLURP, KRP, HCTRP, NARP, CARP, BGRP #### [place] [address] HCTRP Collected: 03/01/2018 Status: F Source: [facility] 10:15 AM [facility] EMERGENCY DEPARTMENT REPOSITORY TYPE CODE TESTS RESULT OUT OF REFERENCE UNITS RANGE LAB HCTRP(LOIN 42.0-52.0 % C) Low Hematocrit - POC 25.0 Performed By: #### CLRP, HGBRP, GLURP, KRP, HCTRP, NARP, CARP, BGRP #### [place] [address] NARP Collected: 03/01/2018 Status: F Source: [facility] 10:15 AM [facility] EMERGENCY DEPARTMENT REPOSITORY TYPE CODE TESTS RESULT OUT OF REFERENCE UNITS RANGE LAB NARP(LOINC) 136-145 mEq/L Low Sodium - POC 132 Performed By: #### CLRP, HGBRP, GLURP, KRP, HCTRP, NARP, CARP, BGRP #### [place] [address] CARP Collected: 03/01/2018 Status: F Source: [facility] 10:15 AM [facility] EMERGENCY DEPARTMENT REPOSITORY TYPE CODE TESTS RESULT OUT OF REFERENCE UNITS RANGE LAB CARP(LOINC) 1.12-1.32 mmol/L Low Ionized 1.08 Calcium - POC Performed By: #### CLRP, HGBRP, GLURP, KRP, HCTRP, NARP, CARP, BGRP #### [place] [address] BGRP Collected: 03/01/2018 Status: F Source: [facility] 10:15 AM [facility] EMERGENCY DEPARTMENT REPOSITORY TYPE CODE TESTS RESULT OUT OF REFERENCE UNITS RANGE LAB PHRP(LOINC 7.380-7.460 ) pH (poct) - POC 7.405 LAB PCORP(LOIN 32.0-46.0 mmHg C) PCO2 - POC 39.7 LAB PO2RP(LOIN 74.0-108.0 mmHg C) PO2 - POC High 375.4 LAB HCORP(LOIN 21.0-29.0 mmol/L C) Bicarbonate - POC 24.3 LAB TCORP(LOIN 22.0-30.0 mmol/L C) Total CO2 - POC 25.5 LAB BERP(LOINC mmol/L ) Base Excess - POC -0.3 LAB O2RP(LOINC 92.0-96.0 % ) O2 High Saturation - POC 98.8 Performed By: #### CLRP, HGBRP, GLURP, KRP, HCTRP, NARP, CARP, BGRP #### [place] [address] BGRP Collected: 03/01/2018 Status: F Source: [facility] 9:31 AM [facility] EMERGENCY DEPARTMENT REPOSITORY TYPE CODE TESTS RESULT OUT OF REFERENCE UNITS RANGE LAB PHRP(LOINC 7.380-7.460 ) pH (poct) - POC 7.457 LAB PCORP(LOIN 32.0-46.0 mmHg C) PCO2 - POC 36.2 LAB PO2RP(LOIN 74.0-108.0 mmHg C) PO2 - POC High 544.5 LAB HCORP(LOIN 21.0-29.0 mmol/L C) Bicarbonate - POC 25.0 LAB TCORP(LOIN 22.0-30.0 mmol/L C) Total CO2 - POC 26.1 LAB BERP(LOINC mmol/L ) Base Excess - POC 1.3 LAB O2RP(LOINC 92.0-96.0 % ) O2 High Saturation - POC 99.1 Performed By: #### BGRP, CLRP, HGBRP, GLURP, KRP, HCTRP, NARP, CARP #### [place] [address] CLRP Collected: 03/01/2018 Status: F Source: [facility] 9:31 AM [facility] EMERGENCY DEPARTMENT REPOSITORY TYPE CODE TESTS RESULT OUT OF REFERENCE UNITS RANGE LAB CLRP(LOINC) 98-110 mEq/L Chloride - POC 106 Performed By: #### BGRP, CLRP, HGBRP, GLURP, KRP, HCTRP, NARP, CARP #### [place] [address] HGBRP Collected: 03/01/2018 Status: F Source: [facility] 9:31 AM [facility] EMERGENCY DEPARTMENT REPOSITORY TYPE CODE TESTS RESULT OUT OF REFERENCE UNITS RANGE LAB HGBRP(LOIN 13.0-17.5 G/dL C) Low Hemoglobin - POC 10.1 Performed By: #### BGRP, CLRP, HGBRP, GLURP, KRP, HCTRP, NARP, CARP #### [place] [address] GLURP Collected: 03/01/2018 Status: F Source: [facility] 9:31 AM [facility] EMERGENCY DEPARTMENT REPOSITORY TYPE CODE TESTS RESULT OUT OF REFERENCE UNITS RANGE LAB GLURP(LOINC 82-115 mg/dL ) High Glucose - POC 116 Performed By: #### BGRP, CLRP, HGBRP, GLURP, KRP, HCTRP, NARP, CARP #### [place] [address] KRP Collected: 03/01/2018 Status: F Source: [facility] 9:31 AM [facility] EMERGENCY DEPARTMENT REPOSITORY TYPE CODE TESTS RESULT OUT OF REFERENCE UNITS RANGE LAB KRP(LOINC) 3.5-5.0 mEq/L Potassium - POC 4.3 Performed By: #### BGRP, CLRP, HGBRP, GLURP, KRP, HCTRP, NARP, CARP #### [place] [address] HCTRP Collected: 03/01/2018 Status: F Source: [facility] 9:31 AM [facility] EMERGENCY DEPARTMENT REPOSITORY TYPE CODE TESTS RESULT OUT OF REFERENCE UNITS RANGE LAB HCTRP(LOIN 42.0-52.0 % C) Low Hematocrit - POC 30.0 Performed By: #### BGRP, CLRP, HGBRP, GLURP, KRP, HCTRP, NARP, CARP #### [place] [address] NARP Collected: 03/01/2018 Status: F Source: [facility] 9:31 AM [facility] EMERGENCY DEPARTMENT REPOSITORY TYPE CODE TESTS RESULT OUT OF REFERENCE UNITS RANGE LAB NARP(LOINC) 136-145 mEq/L Sodium - POC 136 Performed By: #### BGRP, CLRP, HGBRP, GLURP, KRP, HCTRP, NARP, CARP #### [place] [address] CARP Collected: 03/01/2018 Status: F Source: [facility] 9:31 AM [facility] EMERGENCY DEPARTMENT REPOSITORY TYPE CODE TESTS RESULT OUT OF REFERENCE UNITS RANGE LAB CARP(LOINC) 1.12-1.32 mmol/L Ionized 1.20 Calcium - POC Performed By: #### BGRP, CLRP, HGBRP, GLURP, KRP, HCTRP, NARP, CARP #### [place] [address] RBC (PRODUCT) Collected: 03/01/2018 Status: F Source: [facility] 8:27 AM [facility] EMERGENCY DEPARTMENT REPOSITORY TYPE CODE TESTS RESULT OUT OF REFERENCE UNITS RANGE LAB RBCPR(LOINC ) RBC Product RBC Ready Ready for Pickup Performed By: #### RBCP #### [place] [address] BGRP Collected: 03/01/2018 Status: F Source: [facility] 7:38 AM [facility] EMERGENCY DEPARTMENT REPOSITORY TYPE CODE TESTS RESULT OUT OF REFERENCE UNITS RANGE LAB PHRP(LOINC 7.380-7.460 ) pH (poct) - POC 7.439 LAB PCORP(LOIN 32.0-46.0 mmHg C) PCO2 - POC 36.4 LAB PO2RP(LOIN 74.0-108.0 mmHg C) PO2 - POC High 512.4 LAB HCORP(LOIN 21.0-29.0 mmol/L C) Bicarbonate - POC 24.1 LAB TCORP(LOIN 22.0-30.0 mmol/L C) Total CO2 - POC 25.2 LAB BERP(LOINC mmol/L ) Base Excess - POC 0.2 LAB O2RP(LOINC 92.0-96.0 % ) O2 High Saturation - POC 98.7 Performed By: #### BGRP, CLRP, HGBRP, GLURP, KRP, HCTRP, NARP, CARP #### [place] [address] CLRP Collected: 03/01/2018 Status: F Source: [facility] 7:38 AM [facility] EMERGENCY DEPARTMENT REPOSITORY TYPE CODE TESTS RESULT OUT OF REFERENCE UNITS RANGE LAB CLRP(LOINC) 98-110 mEq/L Chloride - POC 106 Performed By: #### BGRP, CLRP, HGBRP, GLURP, KRP, HCTRP, NARP, CARP #### [place] [id number] HGBRP Collected: 03/01/2018 Status: F Source: [facility] 7:38 AM [facility] EMERGENCY DEPARTMENT REPOSITORY TYPE CODE TESTS RESULT OUT OF REFERENCE UNITS RANGE LAB HGBRP(LOIN 13.0-17.5 G/dL C) Low Hemoglobin - POC 10.9 Performed By: #### BGRP, CLRP, HGBRP, GLURP, KRP, HCTRP, NARP, CARP #### [place] [address] GLURP Collected: 03/01/2018 Status: F Source: [facility] 7:38 AM [facility] EMERGENCY DEPARTMENT REPOSITORY TYPE CODE TESTS RESULT OUT OF REFERENCE UNITS RANGE LAB GLURP(LOINC 82-115 mg/dL ) Glucose - POC 95 Performed By: #### BGRP, CLRP, HGBRP, GLURP, KRP, HCTRP, NARP, CARP #### [place] [address] KRP Collected: 03/01/2018 Status: F Source: [facility] 7:38 AM [facility] EMERGENCY DEPARTMENT REPOSITORY TYPE CODE TESTS RESULT OUT OF REFERENCE UNITS RANGE LAB KRP(LOINC) 3.5-5.0 mEq/L Potassium - POC 4.5 Performed By: #### BGRP, CLRP, HGBRP, GLURP, KRP, HCTRP, NARP, CARP #### [place] [address] HCTRP Collected: 03/01/2018 Status: F Source: [facility] 7:38 AM [facility] EMERGENCY DEPARTMENT REPOSITORY TYPE CODE TESTS RESULT OUT OF REFERENCE UNITS RANGE LAB HCTRP(LOIN 42.0-52.0 % C) Low Hematocrit - POC 32.0 Performed By: #### BGRP, CLRP, HGBRP, GLURP, KRP, HCTRP, NARP, CARP #### [place] [address] NARP Collected: 03/01/2018 Status: F Source: [facility] 7:38 AM [facility] EMERGENCY DEPARTMENT REPOSITORY TYPE CODE TESTS RESULT OUT OF REFERENCE UNITS RANGE LAB NARP(LOINC) 136-145 mEq/L Sodium - POC 141 Performed By: #### BGRP, CLRP, HGBRP, GLURP, KRP, HCTRP, NARP, CARP #### [place] [address] CARP Collected: 03/01/2018 Status: F Source: [facility] 7:38 AM [facility] EMERGENCY DEPARTMENT REPOSITORY TYPE CODE TESTS RESULT OUT OF REFERENCE UNITS RANGE LAB CARP(LOINC) 1.12-1.32 mmol/L Ionized 1.22 Calcium - POC Performed By: #### BGRP, CLRP, HGBRP, GLURP, KRP, HCTRP, NARP, CARP #### [place] [id number] CBC Collected: 03/01/2018 Status: F Source: [facility] 6:03 AM [facility] EMERGENCY DEPARTMENT REPOSITORY TYPE CODE TESTS RESULT OUT OF REFERENCE UNITS RANGE LAB WBC(LOINC) 4.50-10.80 10 3/mcL WBC 4.80 LAB RBCCT(LOINC 4.50-6.00 10 6/mcL ) Low RBC 3.07 LAB HGB(LOINC) 13.0-17.5 G/dL Low Hgb 10.0 LAB HCT(LOINC) 40.0-52.0 % Low Hct 29.8 LAB MCV(LOINC) 81.0-100.0 fL MCV 96.9 LAB MCH(LOINC) 27.0-33.0 pg MCH 32.6 LAB MCHC(LOINC) 32.0-36.0 G/dL MCHC 33.6 LAB RDW(LOINC) 11.5-15.5 % RDW 14.4 LAB PLT(LOINC) 150-450 10 3/mcL Platelet 344 LAB MPV(LOINC) 6.4-10.5 fL MPV 7.4 Performed By: #### CBC, ADIFF, ANEU, BMP, GFR #### [address] [address] .AUTO DIFF Collected: 03/01/2018 Status: F Source: [facility] 6:03 [facility] REPOSITORY TYPE CODE TESTS RESULT OUT OF REFERENCE UNITS RANGE LAB TIM(LOINC) 50.0-75.0 % Neutrophil % 62.6 LAB LYM(LOINC) 20.0-40.0 % Low Lymphocyte % 18.3 LAB MON(LOINC) 2.0-13.0 % Monocyte High % 14.6 LAB EO(LOINC) 0.0-6.0 % Eosinophil % 3.9 LAB BAS(LOINC) 0.0-2.5 % Basophil % 0.6 LAB ABLYM(LOIN 0.90-4.32 10 3/mcL C) Lymphocyte, 0.90 Absolute LAB CISCO(LOINC 0.09-1.40 10 3/mcL ) Monocyte, 0.70 Absolute LAB AEOS(LOINC 0.00-0.65 10 3/mcL ) Eosinophil, 0.20 Absolute LAB ABAS(LOINC 0.00-0.27 10 3/mcL ) Basophil, 0.00 Absolute Performed By: #### CBC, ADIFF, ANEU, BMP, GFR #### [address] [id number] .NEUABS Collected: 03/01/2018 Status: F Source: [facility] 6:03 AM [facility] EMERGENCY DEPARTMENT REPOSITORY TYPE CODE TESTS RESULT OUT OF REFERENCE UNITS RANGE LAB ANEU(LOINC) 2.25-8.10 10 3/mcL Neutrophil, 3.00 Absolute Performed By: #### CBC, JEFFERY ANEU, BMP, GFR #### [place] [id number] BMP Collected: 03/01/2018 Status: F Source: [facility] 6:03 AM [facility] EMERGENCY DEPARTMENT REPOSITORY TYPE CODE TESTS RESULT OUT OF REFERENCE UNITS RANGE LAB GLU(LOINC) 82-115 mg/dL Glucose Level 91 LAB NA(LOINC) 136-145 mEq/L Sodium Level 140 LAB K(LOINC) 3.5-5.0 mEq/L Potassium Level 4.8 LAB CL(LOINC) 98-110 mEq/L Chloride 106 LAB CO2(LOINC) 22-32 mEq/L CO2 29 LAB EBAL(LOINC 4.0-15.0 mEq/L ) Electrolyte Balance 5.0 LAB BUN(LOINC) 8.0-22.0 mg/dL BUN High 25.0 LAB CRE(LOINC) 0.60-1.40 mg/dL Creatinine Lvl (s) 0.99 LAB BC(LOINC) 10.0-22.0 ratio High BUN/Creatinine 25.3 Ratio LAB CA(LOINC) 8.4-10.1 mg/dL Calcium Lvl 8.9 Performed By: #### JEFFERY BECK, ANEU, BMP, GFR #### [address] [address] .GFR Collected: 03/01/2018 Status: F Source: [facility] 6:03 [facility] REPOSITORY TYPE CODE TESTS RESULT OUT OF REFERENCE UNITS RANGE LAB GFRAA(LOINC ml/min/1.73 ) sqm GFR >60 Mongolian Result Comment: GFR Population mean for , Non- Americans Ages 20-29 = 116 mL/min/1.73 sq.m. Ages 30-39 = 107 mL/min/1.73 sq.m. Ages 40-49 = 99 mL/min/1.73 sq.m. Ages 50-59 = 93 mL/min/1.73 sq.m. Ages 60-69 = 85 mL/min/1.73 sq.m. Ages 70+ = 75 mL/min/1.73 sq.m. Chronic Kidney Disease: Less than 60 mL/min/1.73 square meters End Stage Renal Disease: Less than 15 mL/min/1.73 square meters LAB GFRNO(LOINC) ml/min/1.73sqm GFR Non- >60 Result Comment: GFR Population mean for , Non- Americans Ages 20-29 = 116 mL/min/1.73 sq.m. Ages 30-39 = 107 mL/min/1.73 sq.m. Ages 40-49 = 99 mL/min/1.73 sq.m. Ages 50-59 = 93 mL/min/1.73 sq.m. Ages 60-69 = 85 mL/min/1.73 sq.m. Ages 70+ = 75 mL/min/1.73 sq.m. Chronic Kidney Disease: Less than 60 mL/min/1.73 square meters End Stage Renal Disease: Less than 15 mL/min/1.73 square meters Performed By: #### CBC, ADIFF, ANEU, BMP, GFR #### [place] [id number] PLATELET (PRODUCT) Collected: 03/01/2018 Status: F Source: [facility] 5:12 AM [facility] EMERGENCY DEPARTMENT REPOSITORY Order Comment: ON HOLD FOR CVOR TYPE CODE TESTS RESULT OUT OF REFERENCE UNITS RANGE LAB PPR(LOINC) Platelet Platelet Ready Product Ready for Pickup Performed By: #### PLTP #### [place] [id number] RBC (PRODUCT) Collected: 02/28/2018 Status: F Source: [facility] 4:38 PM [facility] EMERGENCY DEPARTMENT REPOSITORY TYPE CODE TESTS RESULT OUT OF REFERENCE UNITS RANGE LAB RBCPR(LOINC ) RBC Product RBC Ready Ready for Pickup Performed By: #### RBCP #### [place] [address] UA Collected: 02/28/2018 Status: F Source: [facility] 2:19 PM [facility] EMERGENCY DEPARTMENT REPOSITORY TYPE CODE TESTS RESULT OUT OF REFERENCE UNITS RANGE LAB SPCUA(LOIN C) UA Specimen Type Void LAB CLRUA(LOIN C) UA Color Yellow LAB APPUA(LOIN Clear C) UA Appear Clear LAB SGUA(LOINC 1.006-1.029 ) UA Spec Grav 1.010 LAB GLUA(LOINC Negative mg/dL ) UA Glucose Negative LAB BILUA(LOIN Neg-Trace C) UA Bili Negative LAB KETUA(LOIN Neg-Trace mg/dL C) UA Ketones Negative LAB BLDUA(LOIN Neg-Trace C) UA Blood Trace LAB PHUA(LOINC 5.0 - 8.0 ) UA pH 5.0 LAB PROUA(LOIN Negative mg/dL C) UA Protein Negative LAB UROUA(LOIN 0.2-1.0 E.U./dL C) UA Urobilinogen 0.2 LAB NITUA(LOIN Negative C) UA Nitrite Negative LAB LEUUA(LOIN Negative C) UA Leuk Est Negative Performed By: #### UA #### [place] [id number] Observed: 02/28/2018 Status: F Source: [facility] 2:19 PM [facility] EMERGENCY DEPARTMENT REPOSITORY . MICRO - Microbiology PROCEDURE: Urine Culture [*1] SOURCE: Urine BODY SITE: COLLECTED DATE/TIME: 02/28/2018 14:19 EDT RECEIVED DATE/TIME: 02/28/2018 15:43 EDT START DATE/TIME: 02/28/2018 15:43 EDT FREE TEXT SOURCE: FINAL REPORTS Final Report [] Verified Date/Time/Personnel: 03/02/2018 06:18 EDT 7,000 organisms per mL Gram Negative Rods Sensitivity testing not indicated. PRELIMINARY REPORTS Preliminary Report [] Verified Date/Time/Personnel: 03/01/2018 13:21 EDT Culture results pending. Performing Locations *1: This test was performed at: [facility], [address] [place] [address], [facility] Performed By: #### CUR #### [place] [id number] CBC Collected: 02/28/2018 Status: F Source: [facility] 9:35 AM [facility] EMERGENCY DEPARTMENT REPOSITORY TYPE CODE TESTS RESULT OUT OF REFERENCE UNITS RANGE LAB WBC(LOINC) 4.50-10.80 10 3/mcL WBC 5.10 LAB RBCCT(LOINC 4.50-6.00 10 6/mcL ) Low RBC 3.36 LAB HGB(LOINC) 13.0-17.5 G/dL Low Hgb 11.1 LAB HCT(LOINC) 40.0-52.0 % Low Hct 32.7 LAB MCV(LOINC) 81.0-100.0 fL MCV 97.3 LAB MCH(LOINC) 27.0-33.0 pg MCH 32.9 LAB MCHC(LOINC) 32.0-36.0 G/dL MCHC 33.8 LAB RDW(LOINC) 11.5-15.5 % RDW 14.6 LAB PLT(LOINC) 150-450 10 3/mcL Platelet 384 LAB MPV(LOINC) 6.4-10.5 fL MPV 7.6 Performed By: #### CBC, ADIFF, ANEU, ABORH, ANTIS #### [address] [address] .AUTO DIFF Collected: 02/28/2018 Status: F Source: [facility] 9:35 AM [facility] EMERGENCY DEPARTMENT REPOSITORY TYPE CODE TESTS RESULT OUT OF REFERENCE UNITS RANGE LAB TIM(LOINC) 50.0-75.0 % Neutrophil % 67.0 LAB LYM(LOINC) 20.0-40.0 % Low Lymphocyte % 15.7 LAB MON(LOINC) 2.0-13.0 % Monocyte High % 13.2 LAB EO(LOINC) 0.0-6.0 % Eosinophil % 3.5 LAB BAS(LOINC) 0.0-2.5 % Basophil % 0.6 LAB ABLYM(LOIN 0.90-4.32 10 3/mcL C) Low Lymphocyte, 0.80 Absolute LAB CISCO(LOINC 0.09-1.40 10 3/mcL ) Monocyte, 0.70 Absolute LAB AEOS(LOINC 0.00-0.65 10 3/mcL ) Eosinophil, 0.20 Absolute LAB ABAS(LOINC 0.00-0.27 10 3/mcL ) Basophil, 0.00 Absolute Performed By: #### CBC, ADIFF, ANEU, ABORH, ANTIS #### [address] [address] .NEUABS Collected: 02/28/2018 Status: F Source: [facility] 9:35 AM [facility] EMERGENCY DEPARTMENT REPOSITORY TYPE CODE TESTS RESULT OUT OF REFERENCE UNITS RANGE LAB ANEU(LOINC) 2.25-8.10 10 3/mcL Neutrophil, 3.40 Absolute Performed By: #### CBC, ADIFF, ANEU, ABORH, ANTIS #### [place] [address] TABO Collected: 02/28/2018 Status: F Source: [facility] 9:35 AM [facility] EMERGENCY DEPARTMENT REPOSITORY TYPE CODE TESTS RESULT OUT OF RANGE REFERENCE UNITS LAB ABORH(LOINC ) Unknown ABO/Rh A NEG Interp Performed By: #### CBC, ADIFF, ANEU, ABORH, ANTIS #### [place] [address] TABS Collected: 02/28/2018 Status: F Source: [facility] 9:35 AM [facility] EMERGENCY DEPARTMENT REPOSITORY TYPE CODE TESTS RESULT OUT OF REFERENCE UNITS RANGE LAB ANST(LOINC ) Antibody Negative ABSC Screen Tango Performed By: #### CBC, ADIFF, ANEU, ABORH, ANTIS #### [place] [address] CBC Collected: 02/24/2018 Status: F Source: [facility] 6:10 AM [facility] EMERGENCY DEPARTMENT REPOSITORY TYPE CODE TESTS RESULT OUT OF REFERENCE UNITS RANGE LAB WBC(LOINC) 4.50-10.80 10 3/mcL WBC 4.90 LAB RBCCT(LOINC 4.50-6.00 10 6/mcL ) Low RBC 3.31 LAB HGB(LOINC) 13.0-17.5 G/dL Low Hgb 10.9 LAB HCT(LOINC) 40.0-52.0 % Low Hct 31.8 LAB MCV(LOINC) 81.0-100.0 fL MCV 96.2 LAB MCH(LOINC) 27.0-33.0 pg MCH 33.0 LAB MCHC(LOINC) 32.0-36.0 G/dL MCHC 34.3 LAB RDW(LOINC) 11.5-15.5 % RDW 15.2 LAB PLT(LOINC) 150-450 10 3/mcL Platelet 325 LAB MPV(LOINC) 6.4-10.5 fL MPV 7.5 Performed By: #### CBC, ADIFF, ANEU, TSH, CMP, GFR #### [place] [address] .AUTO DIFF Collected: 02/24/2018 Status: F Source: [facility] 6:10 AM [facility] EMERGENCY DEPARTMENT REPOSITORY TYPE CODE TESTS RESULT OUT OF REFERENCE UNITS RANGE LAB TIM(LOINC) 50.0-75.0 % Neutrophil % 61.7 LAB LYM(LOINC) 20.0-40.0 % Low Lymphocyte % 19.5 LAB MON(LOINC) 2.0-13.0 % Monocyte High % 14.5 LAB EO(LOINC) 0.0-6.0 % Eosinophil % 3.6 LAB BAS(LOINC) 0.0-2.5 % Basophil % 0.7 LAB ABLYM(LOIN 0.90-4.32 10 3/mcL C) Lymphocyte, 1.00 Absolute LAB CISCO(LOINC 0.09-1.40 10 3/mcL ) Monocyte, 0.70 Absolute LAB AEOS(LOINC 0.00-0.65 10 3/mcL ) Eosinophil, 0.20 Absolute LAB ABAS(LOINC 0.00-0.27 10 3/mcL ) Basophil, 0.00 Absolute Performed By: #### CBC, ADIFF, ANEU, TSH, CMP, GFR #### [place] [address] .NEUABS Collected: 02/24/2018 Status: F Source: [facility] 6:10 AM [facility] EMERGENCY DEPARTMENT REPOSITORY TYPE CODE TESTS RESULT OUT OF REFERENCE UNITS RANGE LAB ANEU(LOINC) 2.25-8.10 10 3/mcL Neutrophil, 3.00 Absolute Performed By: #### CBC, ADIFF, ANEU, TSH, CMP, GFR #### [place] [address] TSH Collected: 02/24/2018 Status: F Source: [facility] 6:10 AM [facility] EMERGENCY DEPARTMENT REPOSITORY TYPE CODE TESTS RESULT OUT OF RANGE REFERENCE UNITS LAB TSH(LOINC) 0.360-3.740 mcIU/mL High TSH 5.690 Result Comment: Please note as of 12/19/16 new pediatric reference intervals were added for this test. Performed By: #### CBC, ADIFF, ANEU, TSH, CMP, GFR #### [place] [address] CMP Collected: 02/24/2018 Status: F Source: [facility] 6:10 AM [facility] EMERGENCY DEPARTMENT REPOSITORY TYPE CODE TESTS RESULT OUT OF REFERENCE UNITS RANGE LAB GLU(LOINC) 82-115 mg/dL Glucose Level 89 LAB NA(LOINC) 136-145 mEq/L Sodium Level 139 LAB K(LOINC) 3.5-5.0 mEq/L Potassium Level 4.8 LAB CL(LOINC) 98-110 mEq/L Chloride 107 LAB CO2(LOINC) 22-32 mEq/L CO2 26 LAB EBAL(LOINC 4.0-15.0 mEq/L ) Electrolyte Balance 6.0 LAB BUN(LOINC) 8.0-22.0 mg/dL BUN 22.0 LAB CRE(LOINC) 0.60-1.40 mg/dL Creatinine Lvl (s) 1.03 LAB BC(LOINC) 10.0-22.0 ratio BUN/Creatinine 21.4 Ratio LAB CA(LOINC) 8.4-10.1 mg/dL Calcium Lvl 9.0 LAB PROT(LOINC 6.0-8.5 G/dL ) Total Protein 6.1 LAB ALB(LOINC) 3.2-4.8 G/dL Albumin Level 3.2 LAB GLB(LOINC) 1.5-3.8 G/dL Globulin 2.9 LAB AG(LOINC) 0.9-1.6 ratio A/G Ratio 1.1 LAB BILT(LOINC 0.2-1.2 mg/dL ) Bili Total 0.3 LAB AP(LOINC) 38-126 U/L Alk Phos High 137 LAB AST(LOINC) 8-34 U/L AST/SGOT 28 LAB ALT(LOINC) 12-55 U/L ALT/SGPT 32 Performed By: #### CBC, ADIFF, ANEU, TSH, CMP, GFR #### [place] [address] .GFR Collected: 02/24/2018 Status: F Source: [facility] 6:10 AM [facility] REPOSITORY TYPE CODE TESTS RESULT OUT OF REFERENCE UNITS RANGE LAB GFRAA(LOINC ml/min/1.73 ) sqm GFR >60 Mongolian Result Comment: GFR Population mean for , Non- Americans Ages 20-29 = 116 mL/min/1.73 sq.m. Ages 30-39 = 107 mL/min/1.73 sq.m. Ages 40-49 = 99 mL/min/1.73 sq.m. Ages 50-59 = 93 mL/min/1.73 sq.m. Ages 60-69 = 85 mL/min/1.73 sq.m. Ages 70+ = 75 mL/min/1.73 sq.m. Chronic Kidney Disease: Less than 60 mL/min/1.73 square meters End Stage Renal Disease: Less than 15 mL/min/1.73 square meters LAB GFRNO(LOINC) ml/min/1.73sqm GFR Non- >60 Result Comment: GFR Population mean for , Non- Americans Ages 20-29 = 116 mL/min/1.73 sq.m. Ages 30-39 = 107 mL/min/1.73 sq.m. Ages 40-49 = 99 mL/min/1.73 sq.m. Ages 50-59 = 93 mL/min/1.73 sq.m. Ages 60-69 = 85 mL/min/1.73 sq.m. Ages 70+ = 75 mL/min/1.73 sq.m. Chronic Kidney Disease: Less than 60 mL/min/1.73 square meters End Stage Renal Disease: Less than 15 mL/min/1.73 square meters Performed By: #### CBC, ADIFF, ANEU, TSH, CMP, GFR #### [place] [address] UA Collected: 02/23/2018 Status: F Source: [facility] 7:07 PM [facility] REPOSITORY TYPE CODE TESTS RESULT OUT OF RANGE REFERENCE UNITS LAB SPCUA(BRENDA NC) UA Specimen Type Clean Catch LAB CLRUA(BRENDA NC) UA Color Yellow LAB APPUA(BRENDA Clear NC) UA Appear Clear LAB SGUA(LOIN 1.006-1.029 C) UA Spec Unknown Grav >=1.030 LAB GLUA(LOIN Negative mg/dL C) UA Glucose Negative LAB BILUA(BRENDA Neg-Trace NC) UA Bili Negative LAB KETUA(BRENDA Neg-Trace mg/dL NC) UA Ketones Negative LAB BLDUA(BRENDA Neg-Trace NC) UA Blood Negative LAB PHUA(LOIN 5.0 - 8.0 C) UA pH 5.5 LAB PROUA(BREDNA Negative mg/dL NC) UA Protein Negative LAB UROUA(BRENDA 0.2-1.0 E.U./dL NC) UA Urobilinogen 0.2 LAB NITUA(BRENDA Negative NC) UA Nitrite Negative LAB LEUUA(BRENDA Negative NC) UA Leuk Est Negative Performed By: #### UA #### [place] [id number] [place] [id number] PLT Collected: 02/23/2018 Status: F Source: [facility] 3:53 PM [facility] EMERGENCY DEPARTMENT REPOSITORY TYPE CODE TESTS RESULT OUT OF REFERENCE UNITS RANGE LAB PLT(LOINC) 150-450 10 3/mcL Platelet 348 Performed By: #### PLT, FIB, APTT, PRO, HFP, A1C #### [place] [address] FIB Collected: 02/23/2018 Status: F Source: [facility] 3:53 PM [facility] EMERGENCY DEPARTMENT REPOSITORY TYPE CODE TESTS RESULT OUT OF REFERENCE UNITS RANGE LAB FIB(LOINC) 250-550 mg/dL High Fibrinogen 624 Performed By: #### PLT, FIB, APTT, PRO, HFP, A1C #### [place] [address] APTT Collected: 02/23/2018 Status: F Source: [facility] 3:53 PM [facility] EMERGENCY DEPARTMENT REPOSITORY TYPE CODE TESTS RESULT OUT OF REFERENCE UNITS RANGE LAB PDOSE(LOIN C) Heparin dose Unknown (APTT) LAB APTT0(LOIN 25.0-35.0 seconds C) APTT 33.8 Result Comment: For Heparin anticoagulation therapy, the recommended therapeutic range is: 54-77 seconds (APTT Correlation with Anti-Xa therapeutic range of 0.3-0.7 units/ml). PLEASE REFERENCE THE PHARMACY PROTOCOL FOR DOSING. Performed By: #### PLT, FIB, APTT, PRO, HFP, A1C #### [place] [address] PRO Collected: 02/23/2018 Status: F Source: [facility] 3:53 PM [facility] EMERGENCY DEPARTMENT REPOSITORY TYPE CODE TESTS RESULT OUT OF REFERENCE UNITS RANGE LAB PT(LOINC) 9.0-14.5 seconds Protime 12.6 Result Comment: Effective 12/20/07, Protime results may be affected by some antibiotics (i.e. Ciprofloxacin, Azithromycin, Bactrim) which may potentiate the action of oral anticoagulants, with further increases in Protime/INR. LAB INR(LOINC) ratio PT International Ratio 1.1 Result Comment: The [employer] [employer] (CHEST, 1992, [id number]) recommended therapeutic range for oral anticoagulant therapy is: LOW RISK: Prophylaxis of venous thrombosis INR: 2.0-3.0 Treatment of pulmonary embolism 2.0-3.0 Prevention of systemic embolism 2.0-3.0 HIGH RISK: Mechanical prosthetic valves 2.5-3.5 Performed By: #### PLT, FIB, APTT, PRO, HFP, A1C #### [place] [id number] [place] [address] HFP Collected: 02/23/2018 Status: F Source: [facility] 3:53 PM [facility] EMERGENCY DEPARTMENT REPOSITORY TYPE CODE TESTS RESULT OUT OF REFERENCE UNITS RANGE LAB PROT(LOINC 6.0-8.5 G/dL ) 6.6 Total Protein LAB ALB(LOINC) 3.2-4.8 G/dL 3.5 Albumin Level LAB GLB(LOINC) 1.5-3.8 G/dL 3.1 Globulin LAB AG(LOINC) 0.9-1.6 ratio 1.1 A/G Ratio LAB BILT(LOINC 0.2-1.2 mg/dL ) 0.3 Bili Total LAB BILAD(LOIN 0.0-0.4 mg/dL C) <0.1 Bili Direct LAB BILI(LOINC 0.1-10.0 mg/dL ) Bili Indirect Unable to Calculate Result Comment: Unable to calculate this test result accurately. Results used to calculate this test are outside the reportable range. LAB AP(LOINC) 38-126 U/L High Alk Phos 147 LAB AST(LOINC) 8-34 U/L AST/SGOT 29 LAB ALT(LOINC) 12-55 U/L ALT/SGPT 34 Performed By: #### PLT, FIB, APTT, PRO, HFP, A1C #### [address] [address] A1C Collected: 02/23/2018 Status: F Source: [facility] 3:53 PM [facility] EMERGENCY DEPARTMENT REPOSITORY TYPE CODE TESTS RESULT OUT OF RANGE REFERENCE UNITS LAB A1C(LOINC) 4.0-6.0 % Hgb A1c 5.7 Performed By: #### PLT, FIB, APTT, PRO, HFP, A1C #### [address] [address] TEGPMH Collected: 02/23/2018 Status: F Source: [facility] 3:53 PM [facility] EMERGENCY DEPARTMENT REPOSITORY TYPE CODE TESTS RESULT OUT OF REFERENCE UNITS RANGE LAB RTEGH(LOIN 5.0-10.0 minutes C) R TEG with Heparin 5.8 LAB KTEGH(LOIN 1.0-3.0 minutes C) Low K TEG with Heparin 0.8 LAB ATEGH(LOIN 53.0-72.0 degrees C) Angle High TEG with Heparin 77.8 LAB MATEGH(BRENDA 50.0-70.0 mm NC) MA Max High Clot TEG with 75.7 Heparin LAB [id number](LO 0.0-8.0 % INC) LY30 Lysis TEG with NT Heparin LAB INIADPH(LO % INC) Inhibition ADP 5.5 with Heparin LAB INIAAH(BRENDA % NC) Inhibition AA 90.3 with Heparin LAB MAACTH(BRENDA mm NC) MA Activated with 23.1 Heparin LAB MAADPH(BRENDA mm NC) MA (ADP) with Heparin 72.8 LAB MAAAH(LOIN mm C) MA (AA) with Heparin 28.2 Performed By: #### TEGPMH, TEGPM #### [place] [address] TEGPM Collected: 02/23/2018 Status: F Source: [facility] 3:53 PM [facility] EMERGENCY DEPARTMENT REPOSITORY TYPE CODE TESTS RESULT OUT OF REFERENCE UNITS RANGE LAB RTEG(LOINC 5.0-10.0 minutes ) R TEG 5.9 LAB KTEG(LOINC 1.0-3.0 minutes ) Low K TEG 0.9 LAB ATEGH(LOIN 53.0-72.0 degrees C) Angle High TEG 76.5 LAB MAMCTEG(LO 50.0-70.0 mm INC) MA Max Clot TEG 67.8 LAB [id number](LO 0.0-8.0 % INC) LY30 Lysis TEG NT LAB INIADP(BRENDA % NC) Inhibition ADP 0.0 LAB INIAA(LOIN % C) Inhibition AA 80.4 LAB MAACT(LOIN mm C) MA Activated 24.4 LAB MAADP(LOIN mm C) MA (ADP) 70.4 LAB MAAA(LOINC mm ) MA (AA) 32.9 Performed By: #### TEGPMH, TEGPM #### [place] [address] BG Collected: 02/23/2018 Status: F Source: [facility] 3:39 PM [facility] EMERGENCY DEPARTMENT REPOSITORY Order Comment: on Room Air. Preop Cardiothoracic OR (date) TYPE CODE TESTS RESULT OUT OF REFERENCE UNITS RANGE LAB PH(LOINC) 7.380-7.460 pH 7.457 LAB PCO2(LOINC 32.0-46.0 mmHg ) pCO2 34.0 LAB PO2(LOINC) 74.0-108.0 mmHg pO2 77.7 LAB HCO3(LOINC 21.0-29.0 mmol/L ) HCO3 23.5 LAB TCO2(LOINC 22.0-30.0 mmol/L ) CO2 Totl 24.5 LAB BE(LOINC) mmol/L Base Excess 0.3 LAB O2SAT(LOIN 92.0-96.0 % C) O2 Sat High 96.2 LAB BPRES(LOIN mmHg C) Barometric 737 Pressure Performed By: #### BG #### [place] [id number] [address] [place] [id number] XR PANOREX/ORTHOPANTOGRAM Observed: Status: F Source: [facility] 02/23/2018 3:00 PM [facility] REPOSITORY ORIGINAL Panorex mandible CLINICAL STATEMENT: Preop evaluation Multiple dental fillings and several endodontal procedures have been performed. No periapical lucencies are seen to suggest abscess formation. Temporomandibular joints are maintained. Maxillary sinuses are normally pneumatized. IMPRESSION: No periapical abscess formation seen. Interpreted By: Guille Cavazos MD Preliminary Report By: Guille Cavazos MD Electronically Signed By: Guille Cavazos MD Dictated Date: 02/24/2018 9:00:19 AM Prelim Date: 02/24/2018 9:00:19 AM Sign Date: 02/24/2018 9:02:02 AM BMP Collected: 02/23/2018 Status: F Source: [facility] 8:52 AM [facility] EMERGENCY DEPARTMENT REPOSITORY TYPE CODE TESTS RESULT OUT OF REFERENCE UNITS RANGE LAB GLU(LOINC) 82-115 mg/dL Glucose Level 98 LAB NA(LOINC) 136-145 mEq/L Sodium Level 141 LAB K(LOINC) 3.5-5.0 mEq/L Potassium Level 4.3 LAB CL(LOINC) 98-110 mEq/L Chloride 108 LAB CO2(LOINC) 22-32 mEq/L CO2 27 LAB EBAL(LOINC 4.0-15.0 mEq/L ) Electrolyte Balance 6.0 LAB BUN(LOINC) 8.0-22.0 mg/dL BUN 20.0 LAB CRE(LOINC) 0.60-1.40 mg/dL Creatinine Lvl (s) 1.03 LAB BC(LOINC) 10.0-22.0 ratio BUN/Creatinine 19.4 Ratio LAB CA(LOINC) 8.4-10.1 mg/dL Calcium Lvl 9.5 Performed By: #### BMP, GFR, CBC, ADIFF, ANEU #### [place] [id number] .GFR Collected: 02/23/2018 Status: F Source: [facility] 8:52 AM [facility] REPOSITORY TYPE CODE TESTS RESULT OUT OF REFERENCE UNITS RANGE LAB GFRAA(LOINC ml/min/1.73 ) sqm GFR >60 [place] Result Comment: GFR Population mean for , Non- Americans Ages 20-29 = 116 mL/min/1.73 sq.m. Ages 30-39 = 107 mL/min/1.73 sq.m. Ages 40-49 = 99 mL/min/1.73 sq.m. Ages 50-59 = 93 mL/min/1.73 sq.m. Ages 60-69 = 85 mL/min/1.73 sq.m. Ages 70+ = 75 mL/min/1.73 sq.m. Chronic Kidney Disease: Less than 60 mL/min/1.73 square meters End Stage Renal Disease: Less than 15 mL/min/1.73 square meters LAB GFRNO(LOINC) ml/min/1.73sqm GFR Non- >60 Result Comment: GFR Population mean for , Non- Americans Ages 20-29 = 116 mL/min/1.73 sq.m. Ages 30-39 = 107 mL/min/1.73 sq.m. Ages 40-49 = 99 mL/min/1.73 sq.m. Ages 50-59 = 93 mL/min/1.73 sq.m. Ages 60-69 = 85 mL/min/1.73 sq.m. Ages 70+ = 75 mL/min/1.73 sq.m. Chronic Kidney Disease: Less than 60 mL/min/1.73 square meters End Stage Renal Disease: Less than 15 mL/min/1.73 square meters Performed By: #### BMP, GFR, CBC, ADIFF, ANEU #### [place] [id number] CBC Collected: 02/23/2018 Status: F Source: [facility] 8:52 AM [facility] EMERGENCY DEPARTMENT REPOSITORY TYPE CODE TESTS RESULT OUT OF REFERENCE UNITS RANGE LAB WBC(LOINC) 4.50-10.80 10 3/mcL Low WBC 4.30 LAB RBCCT(LOINC 4.50-6.00 10 6/mcL ) Low RBC 3.43 LAB HGB(LOINC) 13.0-17.5 G/dL Low Hgb 11.0 LAB HCT(LOINC) 40.0-52.0 % Low Hct 33.2 LAB MCV(LOINC) 81.0-100.0 fL MCV 96.8 LAB MCH(LOINC) 27.0-33.0 pg MCH 32.2 LAB MCHC(LOINC) 32.0-36.0 G/dL MCHC 33.3 LAB RDW(LOINC) 11.5-15.5 % RDW 15.1 LAB PLT(LOINC) 150-450 10 3/mcL Platelet 325 LAB MPV(LOINC) 6.4-10.5 fL MPV 7.5 Performed By: #### BMP, GFR, CBC, ADIFF, ANEU #### [address] [address] .AUTO DIFF Collected: 02/23/2018 Status: F Source: [facility] 8:52 AM [facility] EMERGENCY DEPARTMENT REPOSITORY TYPE CODE TESTS RESULT OUT OF REFERENCE UNITS RANGE LAB TIM(LOINC) 50.0-75.0 % Neutrophil % 64.4 LAB LYM(LOINC) 20.0-40.0 % Low Lymphocyte % 19.6 LAB MON(LOINC) 2.0-13.0 % Monocyte % 11.5 LAB EO(LOINC) 0.0-6.0 % Eosinophil % 4.0 LAB BAS(LOINC) 0.0-2.5 % Basophil % 0.5 LAB ABLYM(LOIN 0.90-4.32 10 3/mcL C) Low Lymphocyte, 0.80 Absolute LAB CISCO(LOINC 0.09-1.40 10 3/mcL ) Monocyte, 0.50 Absolute LAB AEOS(LOINC 0.00-0.65 10 3/mcL ) Eosinophil, 0.20 Absolute LAB ABAS(LOINC 0.00-0.27 10 3/mcL ) Basophil, 0.00 Absolute Performed By: #### BMP, GFR, CBC, ADIFF, ANEU #### [place] [address] .NEUABS Collected: 02/23/2018 Status: F Source: [facility] [employer] [facility] 8:52 AM [facility] EMERGENCY DEPARTMENT REPOSITORY TYPE CODE TESTS RESULT OUT OF REFERENCE UNITS RANGE LAB ANEU(LOINC) 2.25-8.10 10 3/mcL Neutrophil, 2.70 Absolute Performed By: #### BMP, GFR, CBC, ADIFF, ANEU #### [place] [address] NM MYOCARDIAL SPECT Observed: 02/22/2018 Status: F Source: [facility] STRESS/REST 6:00 AM [facility] REPOSITORY ORIGINAL NM MYOCARDIAL SPECT STRESS/REST CLINICAL STATEMENT: chest pain TECHNIQUE: Radiopharmaceutical: Tc-99m Sestamibi IV Dose: 8.0 mCi Symptomatic at time of injection: No Gated SPECT tomographic acquisition Images reconstructed and reoriented into short axis, vertical and horizontal long axis planes. COMPARISON:None REPORT:LEFT ventricle appears mildly dilated on the resting images. Only resting images are associated with the study as the patient was noted to have moderate to severe aortic stenosis on physical exam and therefore, the stress test was canceled. Resting images reveal reduced radiotracer uptake in the basal to mid inferior/inferolateral, inferoapical region. This could represent diaphragmatic attenuation artifact versus prior myocardial infarcti on which cannot be excluded given that there is no stress imaging associated with this study. No gated SPECT imaging associated with this study. IMPRESSION: 1. Resting only nuclear images reveal reduced radiotracer uptake in the basal to mid inferior/inferolateral and inferoapical region. 2. Stress test was canceled due to significant underlying aortic stenosis. Interpreted By: Dino Estrella Preliminary Report By: Dino Estrella Electronically Signed By: Dino Estrella Dictated Date: 02/22/2018 8:42:43 AM Prelim Date: 02/22/2018 8:42:43 AM Sign Date: 02/22/2018 8:49:26 AM CBC Collected: 02/22/2018 Status: F Source: [facility] 3:49 AM [facility] EMERGENC[facility]PART[facility] REPOSITORY TYPE CODE TESTS RESULT OUT OF REFERENCE UNITS RANGE LAB WBC(LOINC) 4.60-10.80 10 3/mcL Low WBC 4.50 LAB RBCCT(LOINC 4.04-6.13 10 6/mcL ) Low RBC 2.97 LAB HGB(LOINC) 14.0-18.0 G/dL Low Hgb 10.1 LAB HCT(LOINC) 42.0-52.0 % Low Hct 28.8 LAB MCV(LOINC) 80.0-94.0 fL High MCV 96.8 LAB MCH(LOINC) 27.0-31.2 pg High MCH 34.0 LAB MCHC(LOINC) 31.8-35.4 G/dL MCHC 35.1 LAB RDW(LOINC) 11.5-14.5 % High RDW 14.9 LAB PLT(LOINC) 130-400 10 3/mcL Platelet 302 LAB MPV(LOINC) 7.4-10.4 fL Low MPV 7.3 Performed By: #### CBC, ADIFF, ANEU #### [address] [address] #### BMP, LIPID, GFR #### [address] [address] .AUTO DIFF Collected: 02/22/2018 Status: F Source: [facility] 3:49 AM [facility] EMERGENCY DEPARTMENT REPOSITORY TYPE CODE TESTS RESULT OUT OF REFERENCE UNITS RANGE LAB TIM(LOINC) 37.0-80.0 % Neutrophil % 62.4 LAB LYM(LOINC) 10.0-50.0 % Lymphocyte % 19.9 LAB MON(LOINC) 1.7-13.0 % Monocyte % 12.5 LAB EO(LOINC) 0.0-7.0 % Eosinophil % 4.6 LAB BAS(LOINC) 0.0-2.5 % Basophil % 0.6 LAB ABLYM(LOIN 0.77-3.85 10 3/mcL C) Lymphocyte, 0.90 Absolute LAB CISCO(LOINC 0.15-1.00 10 3/mcL ) Monocyte, 0.60 Absolute LAB AEOS(LOINC 0.00-0.40 10 3/mcL ) Eosinophil, 0.20 Absolute LAB ABAS(LOINC 0.00-0.19 10 3/mcL ) Basophil, 0.00 Absolute Performed By: #### CBC, ADIFF, ANEU #### [address] [address] #### BMP, LIPID, GFR #### [address] [address] .NEUABS Collected: 02/22/2018 Status: F Source: [facility] 3:49 AM [facility] EMERGENC[facility] DEPARTMENT REPOSITORY TYPE CODE TESTS RESULT OUT OF REFERENCE UNITS RANGE LAB ANEU(LOINC) 2.85-6.16 10 3/mcL Low Neutrophil, 2.80 Absolute Performed By: #### CBC, ADIFF, ANEU #### [address] [address] #### BMP, LIPID, GFR #### [address] [address] BMP Collected: 02/22/2018 Status: F Source: [facility] 3:49 AM [facility] EMERGENCY [facility]PARTMENT REPOSITORY TYPE CODE TESTS RESULT OUT OF REFERENCE UNITS RANGE LAB GLU(LOINC) 83-110 mg/dL Glucose Level 92 LAB NA(LOINC) 136-145 mmol/L Sodium Level 142 LAB K(LOINC) 3.5-5.1 mmol/L Potassium Level 4.6 LAB CL(LOINC) 98-107 mmol/L Chloride 107 LAB CO2(LOINC) 23-31 mmol/L CO2 27 LAB EBAL(LOINC mEq/L ) Electrolyte Balance 8.0 LAB BUN(LOINC) 7-18 mg/dL BUN High 27 LAB CRE(LOINC) 0.70-1.30 mg/dL Creatinine Lvl (s) 1.02 LAB BC(LOINC) 7-27 ratio BUN/Creatinine 26 Ratio LAB CA(LOINC) 8.4-10.2 mg/dL Calcium Lvl 9.1 Performed By: #### CBC, ADIFF, ANEU #### [address] [address] #### BMP, LIPID, GFR #### [address] [id number] LIPID Collected: 02/22/2018 Status: F Source: [facility] 3:49 AM [facility] EMERGENCY DEPARTMENT REPOSITORY TYPE CODE TESTS RESULT OUT OF REFERENCE UNITS RANGE LAB CHOL(LOINC 0-200 mg/dL ) Cholesterol 179 Result Comment: Cholesterol Reference Interval: Less than 200 Desirable 200-239 Borderline high risk 240 and above High risk LAB TRIG(LOINC) 0-150 mg/dL Triglycerides 81 Result Comment: Triglyceride Reference Interval: Less than 150 Normal 150-199 Borderline high risk 200-499 High risk 500 or higher Very high risk LAB HD(LOINC) 40-60 mg/dL HDL Low Cholesterol 28 LAB LDL(LOINC) 0-130 mg/dL LDL High Cholesterol 135 Performed By: #### CBC, ADIFF, ANEU #### [facility] [address] [place], [place] [address] #### BMP, LIPID, GFR #### [address] [address] .GFR Collected: 02/22/2018 Status: F Source: [facility] [employer] 3:49 AM [facility] REPOSITORY TYPE CODE TESTS RESULT OUT OF REFERENCE UNITS RANGE LAB GFRAA(LOINC ml/min/1.73 ) sqm GFR 85 Mongolian Result Comment: GFR Population mean for , Non- Americans Ages 20-29 = 116 mL/min/1.73 sq.m. Ages 30-39 = 107 mL/min/1.73 sq.m. Ages 40-49 = 99 mL/min/1.73 sq.m. Ages 50-59 = 93 mL/min/1.73 sq.m. Ages 60-69 = 85 mL/min/1.73 sq.m. Ages 70+ = 75 mL/min/1.73 sq.m. Chronic Kidney Disease: Less than 60 mL/min/1.73 square meters End Stage Renal Disease: Less than 15 mL/min/1.73 square meters LAB GFRNO(LOINC) ml/min/1.73sqm GFR Non- 70 Result Comment: GFR Population mean for , Non- Americans Ages 20-29 = 116 mL/min/1.73 sq.m. Ages 30-39 = 107 mL/min/1.73 sq.m. Ages 40-49 = 99 mL/min/1.73 sq.m. Ages 50-59 = 93 mL/min/1.73 sq.m. Ages 60-69 = 85 mL/min/1.73 sq.m. Ages 70+ = 75 mL/min/1.73 sq.m. Chronic Kidney Disease: Less than 60 mL/min/1.73 square meters End Stage Renal Disease: Less than 15 mL/min/1.73 square meters Performed By: #### CBC, ADIFF, ANEU #### [address] [address] [place], [place] [address] #### BMP, LIPID, GFR #### [address] [id number] TROP Collected: 02/22/2018 Status: F Source: [facility] [employer] 3:49 AM [facility] EMERGENCY DEPART[facility] REPOSITORY TYPE CODE TESTS RESULT OUT OF REFERENCE UNITS RANGE LAB TROP(LOINC) 0.000-0.040 ng/mL Troponin 0.028 Result Comment: Troponin I reference range: 0.00-0.040 ng/mL Negative and non-diagnostic. >0.040 ng/mL Consistent with cardiac damage, increased clinical risk and possibility of myocardial infarction. Serial measurements, a rise & fall in test results, clinical history, appropriate symptoms and/or ECG changes may help assess possibility of DC. *Other non-acute coronary syndrome conditions such as CHF, myocarditis, pulmonary emboli, sepsis and cardiac surgery could result in myocardial damage and increased troponin levels. Performed By: #### TROP #### [address] [address] XR CHEST 1 VIEW Observed: 02/21/2018 Status: F Source: [employer] 2:04 PM [facility] EMERGENC[facility]PARTMENT REPOSITORY ORIGINAL Portable Chest x-ray Clinical Statement: chest pain Comparison: None Probable chronic coarse lung markings, but no consolidation, pleural effusion, or pneumothorax is seen. The cardiac silhouette appears unremarkable. Degenerative changes as seen in the RIGHT shoulder. IMPRESSION: No acute process. Interpreted By: John Farfan DO Preliminary Report By: John Farfan DO Electronically Signed By: John Farfan DO Dictated Date: 02/21/2018 2:32:01 PM Prelim Date: 02/21/2018 2:32:01 PM Sign Date: 02/21/2018 2:33:35 PM CBC Collected: 02/21/2018 Status: F Source: [employer] 1:40 PM [facility] EMERGENCY DEPART[facility] REPOSITORY TYPE CODE TESTS RESULT OUT OF REFERENCE UNITS RANGE LAB WBC(LOINC) 4.60-10.80 10 3/mcL WBC 5.20 LAB RBCCT(LOINC 4.04-6.13 10 6/mcL ) Low RBC 3.19 LAB HGB(LOINC) 14.0-18.0 G/dL Low Hgb 10.9 LAB HCT(LOINC) 42.0-52.0 % Low Hct 31.0 LAB MCV(LOINC) 80.0-94.0 fL High MCV 97.4 LAB MCH(LOINC) 27.0-31.2 pg High MCH 34.1 LAB MCHC(LOINC) 31.8-35.4 G/dL MCHC 35.0 LAB RDW(LOINC) 11.5-14.5 % High RDW 15.5 LAB PLT(LOINC) 130-400 10 3/mcL Platelet 343 LAB MPV(LOINC) 7.4-10.4 fL Low MPV 7.3 Performed By: #### CBC, ADIFF, ANEU #### [address] [address] #### BMP, TROP, GFR #### [place] [address] .AUTO DIFF Collected: 02/21/2018 Status: F Source: [facility] 1:40 PM [facility] REPOSITORY TYPE CODE TESTS RESULT OUT OF REFERENCE UNITS RANGE LAB TIM(LOINC) 37.0-80.0 % Neutrophil % 65.5 LAB LYM(LOINC) 10.0-50.0 % Lymphocyte % 18.1 LAB MON(LOINC) 1.7-13.0 % Monocyte % 12.4 LAB EO(LOINC) 0.0-7.0 % Eosinophil % 3.5 LAB BAS(LOINC) 0.0-2.5 % Basophil % 0.5 LAB ABLYM(LOIN 0.77-3.85 10 3/mcL C) Lymphocyte, 0.90 Absolute LAB CISCO(LOINC 0.15-1.00 10 3/mcL ) Monocyte, 0.60 Absolute LAB AEOS(LOINC 0.00-0.40 10 3/mcL ) Eosinophil, 0.20 Absolute LAB ABAS(LOINC 0.00-0.19 10 3/mcL ) Basophil, 0.00 Absolute Performed By: #### CBC, ADIFF, ANEU #### [address] [address] #### BMP, TROP, GFR #### [address] [address] .NEUABS Collected: 02/21/2018 Status: F Source: [facility] 1:40 PM [facility] EMERGENC[facility] DEPARTMENT REPOSITORY TYPE CODE TESTS RESULT OUT OF REFERENCE UNITS RANGE LAB ANEU(LOINC) 2.85-6.16 10 3/mcL Neutrophil, 3.40 Absolute Performed By: #### CBC, ADIFF, ANEU #### [address] [address] #### BMP, TROP, GFR #### [place] [address] BMP Collected: 02/21/2018 Status: F Source: [facility] 1:40 [facility] REPOSITORY TYPE CODE TESTS RESULT OUT OF REFERENCE UNITS RANGE LAB GLU(LOINC) 83-110 mg/dL Glucose Level 101 LAB NA(LOINC) 136-145 mmol/L Sodium Level 142 LAB K(LOINC) 3.5-5.1 mmol/L Potassium High Level 5.2 LAB CL(LOINC) 98-107 mmol/L Chloride 105 LAB CO2(LOINC) 23-31 mmol/L CO2 29 LAB EBAL(LOINC mEq/L ) Electrolyte Balance 8.0 LAB BUN(LOINC) 7-18 mg/dL BUN High 28 LAB CRE(LOINC) 0.70-1.30 mg/dL Creatinine Lvl (s) 1.15 LAB BC(LOINC) 7-27 ratio BUN/Creatinine 24 Ratio LAB CA(LOINC) 8.4-10.2 mg/dL Calcium Lvl 9.6 Performed By: #### CBC, ADIFF, ANEU #### [address] [address] #### BMP, TROP, GFR #### [place] [address] TROP Collected: 02/21/2018 Status: F Source: [facility] 1:40 [facility] REPOSITORY TYPE CODE TESTS RESULT OUT OF REFERENCE UNITS RANGE LAB TROP(LOINC) 0.000-0.040 ng/mL Troponin 0.029 Result Comment: Troponin I reference range: 0.00-0.040 ng/mL Negative and non-diagnostic. >0.040 ng/mL Consistent with cardiac damage, increased clinical risk and possibility of myocardial infarction. Serial measurements, a rise & fall in test results, clinical history, appropriate symptoms and/or ECG changes may help assess possibility of DC. *Other non-acute coronary syndrome conditions such as CHF, myocarditis, pulmonary emboli, sepsis and cardiac surgery could result in myocardial damage and increased troponin levels. Performed By: #### CBC, ADIFF, ANEU #### [facility] [address] [place], [place] [address] #### BMP, TROP, GFR #### [facility] [address] [place] [address] .GFR Collected: 02/21/2018 Status: F Source: [facility] [employer] [facility] 1:40 PM [facility] REPOSITORY TYPE CODE TESTS RESULT OUT OF REFERENCE UNITS RANGE LAB GFRAA(LOINC ml/min/1.73 ) sqm GFR 74 Mongolian Result Comment: GFR Population mean for , Non- Americans Ages 20-29 = 116 mL/min/1.73 sq.m. Ages 30-39 = 107 mL/min/1.73 sq.m. Ages 40-49 = 99 mL/min/1.73 sq.m. Ages 50-59 = 93 mL/min/1.73 sq.m. Ages 60-69 = 85 mL/min/1.73 sq.m. Ages 70+ = 75 mL/min/1.73 sq.m. Chronic Kidney Disease: Less than 60 mL/min/1.73 square meters End Stage Renal Disease: Less than 15 mL/min/1.73 square meters LAB GFRNO(LOINC) ml/min/1.73sqm GFR Non- 61 Result Comment: GFR Population mean for , Non- Americans Ages 20-29 = 116 mL/min/1.73 sq.m. Ages 30-39 = 107 mL/min/1.73 sq.m. Ages 40-49 = 99 mL/min/1.73 sq.m. Ages 50-59 = 93 mL/min/1.73 sq.m. Ages 60-69 = 85 mL/min/1.73 sq.m. Ages 70+ = 75 mL/min/1.73 sq.m. Chronic Kidney Disease: Less than 60 mL/min/1.73 square meters End Stage Renal Disease: Less than 15 mL/min/1.73 square meters Performed By: #### CBC, ADIFF, ANEU #### [place] [address] [place], [place] [address] #### BMP, TROP, GFR #### [facility] [address] [place] [address] PSA,TOTAL- DIAGNOSTIC Collected: 12/21/2017 Status: F Source: [facility] 4:04 PM [facility] REPOSITORY TYPE CODE TESTS RESULT OUT OF RANGE REFERENCE UNITS LAB L501.9940 0.0-4.0 ng/mL PSA, Normal DIAGNOSTIC < 0.01 Result Comment: This test was performed using the TPSA assay method for the [employer] chemistry system. Values obtained with different assay methods cannot be used interchangably. When changing PSA assays in the course of monitoring a patient, additional sequential testing should be carried out to confirm baseline values. Performed By: #### L501.9940 #### [facility] [address] [place], [address] HGMP Collected: 11/15/2017 Status: F Source: [facility] 9:10 AM [facility] EMERGENCY DEPARTMENT REPOSITORY TYPE CODE TESTS RESULT OUT OF REFERENCE UNITS RANGE LAB WBC(LOINC) 4.60-10.80 10 3/mcL Low WBC 4.20 LAB RBCCT(LOINC 4.04-6.13 10 6/mcL ) Low RBC 3.52 LAB HGB(LOINC) 14.0-18.0 G/dL Low Hgb 11.2 LAB HCT(LOINC) 42.0-52.0 % Low Hct 33.2 LAB MCV(LOINC) 80.0-94.0 fL High MCV 94.6 LAB MCH(LOINC) 27.0-31.2 pg High MCH 31.8 LAB MCHC(LOINC) 31.8-35.4 G/dL MCHC 33.6 LAB RDW(LOINC) 11.5-14.5 % High RDW 15.3 LAB PLT(LOINC) 130-400 10 3/mcL Platelet 335 LAB MPV(LOINC) 7.4-10.4 fL MPV 7.8 Performed By: #### HGMP, CMP, GFR #### [address] [place], [place] [address] CMP Collected: 11/15/2017 Status: F Source: [facility] [employer] 9:10 AM [facility] EMERGENCY DEPARTMENT REPOSITORY TYPE CODE TESTS RESULT OUT OF REFERENCE UNITS RANGE LAB GLU(LOINC) 83-110 mg/dL Glucose Level 99 LAB NA(LOINC) 136-146 mEq/L Sodium Level 139 LAB K(LOINC) 3.5-5.1 mEq/L Potassium Level 4.9 LAB CL(LOINC) 98-107 mEq/L Chloride 105 LAB CO2(LOINC) 23-31 mEq/L CO2 28 LAB EBAL(LOINC mEq/L ) Electrolyte Balance 6.0 LAB BUN(LOINC) 7.0-18.0 mg/dL BUN High 24.8 LAB CRE(LOINC) 0.6-1.2 mg/dL Creatinine Lvl (s) 1.0 LAB BC(LOINC) 7-27 ratio BUN/Creatinine 25 Ratio LAB CA(LOINC) 8.4-10.2 mg/dL Calcium Lvl 9.6 LAB PROT(LOINC 6.0-8.3 G/dL ) Total Protein 6.4 LAB ALB(LOINC) 3.4-4.8 G/dL Albumin Level 3.9 LAB GLB(LOINC) G/dL Globulin 2.5 LAB AG(LOINC) 1.1-2.5 ratio A/G Ratio 1.6 LAB BILT(LOINC 0.2-1.0 mg/dL ) Bili Total 0.2 LAB AP(LOINC) 40-135 IU/L Alk Phos 120 LAB AST(LOINC) 10-40 IU/L AST/SGOT 24 LAB ALT(LOINC) 10-35 IU/L ALT/SGPT 22 Performed By: #### HGMP, CMP, GFR #### [place] [address] [address] .GFR Collected: 11/15/2017 Status: F Source: [facility] [employer] 9:10 AM [facility] EMERGENCY DEPARTMENT REPOSITORY TYPE CODE TESTS RESULT OUT OF REFERENCE UNITS RANGE LAB GFRAA(LOINC ml/min/1.73 ) sqm GFR 90 Mongolian Result Comment: GFR Population mean for , Non- Americans Ages 20-29 = 116 mL/min/1.73 sq.m. Ages 30-39 = 107 mL/min/1.73 sq.m. Ages 40-49 = 99 mL/min/1.73 sq.m. Ages 50-59 = 93 mL/min/1.73 sq.m. Ages 60-69 = 85 mL/min/1.73 sq.m. Ages 70+ = 75 mL/min/1.73 sq.m. Chronic Kidney Disease: Less than 60 mL/min/1.73 square meters End Stage Renal Disease: Less than 15 mL/min/1.73 square meters LAB GFRNO(LOINC) ml/min/1.73sqm GFR Non- >60 Result Comment: GFR Population mean for , Non- Americans Ages 20-29 = 116 mL/min/1.73 sq.m. Ages 30-39 = 107 mL/min/1.73 sq.m. Ages 40-49 = 99 mL/min/1.73 sq.m. Ages 50-59 = 93 mL/min/1.73 sq.m. Ages 60-69 = 85 mL/min/1.73 sq.m. Ages 70+ = 75 mL/min/1.73 sq.m. Chronic Kidney Disease: Less than 60 mL/min/1.73 square meters End Stage Renal Disease: Less than 15 mL/min/1.73 square meters Performed By: #### HGMP, CMP, GFR #### [address] [place], [place] [address] PSA,TOTAL- DIAGNOSTIC Collected: 09/24/2017 Status: F Source: [facility] 10:51 [facility] REPOSITORY TYPE CODE TESTS RESULT OUT OF RANGE REFERENCE UNITS LAB L501.9940 0.0-4.0 ng/mL PSA, Normal DIAGNOSTIC < 0.01 Result Comment: This test was performed using the TPSA assay method for the [employer] chemistry system. Values obtained with different assay methods cannot be used interchangably. When changing PSA assays in the course of monitoring a patient, additional sequential testing should be carried out to confirm baseline values. Performed By: #### L501.9940 #### [facility] [address] [place], [address] ALLERGIES ALLERGIES No Allergies Records FoundENCOUNTERS ENCOUNTERS ADMIT/DISCHARGE ACCOUNT NUMBER ADMITTING ENCOUNTER LOCATION SOURCE CLASS 06/23/2018 [id number] Ambulatory [facility] ding:LAB Repository 06/16/2018/06/16/19 [id number] Ambulatory BBuilding:OL Katia 19 AB [facility] Repository 05/05/2018 [id number] Ambulatory BBuilding:CR Katia H [facility] Repository 03/24/2018/03/24/20 [id number] Ambulatory AULTMANBuild Kat[place] 18 ing:LAB [facility] Repository 03/24/2018/03/24/20 [id number] Ambulatory AULTMANBuild [place] 18 ing:XRAY [facility] Repository 03/07/2018/03/11/20 [id number] JOSHUA PETIT., Inpatient BBuilding:MS Katia Romano MD. JENNIFER Diaz Encounter URRoom: Health 0241Bed: S [facility] Repository 02/22/2018/03/07/20 [id number] JOSHUA MCGRATH, Inpatient ABuilding:SAMM Romano MD. JENNIFER Diaz Encounter SDRoom: Health 02[address]Bed: A [facility] Repository 02/21/2018/02/23/20 [id number] JOSHUA MCGRATH, Ambulatory BBuilding:MS Katia Romano MD. JENNIFER Diaz URRoom: Health [address]Bed: A [facility] Repository 12/21/2017 [id number] Ambulatory [facility] ding:LAB Repository 11/15/2017/11/16/19 [id number] Ambulatory BBuilding:OL Katia 18 [facility] Repository 09/24/2017 [id number] Ambulatory [facility] ding:LAB.FUT Repository URE PAYERS PAYERS ENCOUNTER GUARANTOR PAYER SUBSCRIBER SOURCE 06/23/2018 [facility]LY L [id number] Insurance:YUN JACINTOAUSDOB: [facility] [address] [facility] [employer] PLAN [id number] Number: Repository [id number]: [phone] [id number] [phone] () Date:[id number] [address]HW: 06/23/2018 Secondary NOT GIVENUNK [place] Insurance:SELF PAY [facility] Number: Effective Repository Date:2018-06-23 06/16/2018 BEVERLY Ann Primary [place]LY Ann [place]: Insurance:PRIME TIME KORNHAUSDOB: [facility] [id number] [facility] (DIAZ)Policy [id number] Repository [address] [place] Number: [place] [address]~KIDRONANGE [id number] [id number]: 330) [email or web address] Date:2018-06-16 [phone] Tel: [phone] (HP) (HP) Name:OLY SAENZ 000-0000 (WP) [place], [place] [address]WA: 05/05/2018 BEVERLY Ann [facility]: Insurance:PRIME TIME KORNHAUSDOB: [facility] [id number] [facility] (DIAZ)Policy [id number] Repository [address] [place] Number: [address] [place] [address]~KID[place]ANGE [id number]: 330 L@[employer] Date:2018-05-04 [phone] Tel: [phone] (HP) (HP) Name:OLY SAENZ 000-0000 (WP) [address] [address]GB: 03/24/2018 BEVERLY Ann Primary BEVERLY Ann [place]: Insurance:PRIME TIME KORNHAUSDOB: [facility] [id number] [facility] (DIAZ)Policy [id number] Repository [address] [place] Number: [address] [place] [address]~[place] [id number] [id number]: 330) [email or web address] Date:2018-03-24 [phone] Tel: [phone] (HP) Name:OLY SAENZ 000-0000 (WP) (HP)Tel: [phone] 9386E[place]ed [place] [address] (WP) [address]SI: 03/24/2018 BEVERLY Ann Primary BEVERLY L [place]: [facility] TIME [facility] [id number] [facility] (LEOTI)Policy [id number] Repository [address] Number: [place] [address] [address]~K[place]ANGE [id number]: (546) [email or web address] Date:2018-03-24 [phone] Tel: [phone] (HP) Name:OLY SAENZ 000-0000 (WP) (HP)Tel: [phone]) [place] [address] (WP) [address]JR: 03/07/2018 [facility] [id number] [facility] (LEOTI)Policy [id number] Repository [address] Number: [address] [address]~K[place]ANGE [id number] [address]Zas: 330 L@[employer] Date:2018-03-072616 Tel: [phone] (HP) Name:OLY SAENZ 000-0000 (WP) (HP)Tel: [phone] [place], [place] [address] (WP) [address]JC: 03/07/2018 Secondary [facility] Insurance:MEDICARE [facility] PART APolicy Number: [id number] Repository [id number] DANY MICHAEL [place] Date:2018-03-07 00021Eey: [id number] [phone] Name:MMail Code AG ()Tel: [address] (WP) [place] [address]IA: 02/22/2018 BEVERLY L Primary [place]: Insurance:[facility] [id number] [facility] (DIAZ)Policy [id number] Repository VICTORIA MICHAEL Number: VICTORIA GAMBLE [address]~KIDRONANGE [id number]: 330) L@[employer] Date:2018-02-22 [phone] Tel: [phone] () Name:NPO DANY 000-0000 (WP) ()Tel: [phone]) [place]25[place], [place] [address] (WP) [phone]: 02/22/2018 Secondary [place] [facility] Insurance[facility] PART APolicy Number: [id number] Repository [id number] [address] Date:2018-02-2293411Nxl: [id number] [phone] Name:MMail Code ()Tel: 000 [address] (WP) 389[address] [address]VO: 02/21/2018 BEVERLY L Primary [place]LY [place]: [facility] [id number] [facility] (DIAZ)Policy [id number] Repository VICTORIA MICHAEL Number: VICTORIA GAMBLE [address]~KIDRONANGE [id number]: 330) L@[employer] Date:2018-02-21 [phone] Tel: [phone] () Name:[address] (WP) (HP)Tel: [phone]) 6252[place]ed [place] [address] (WP) [address]MG: 12/21/2017 Beverly L Primary Beverly L [place] [id number] Insurance:YUN [facility]: [facility] [id number] Number: Repository [id number]: [phone] [id number] [phone] (HP) Date:[id number] [address]BU: 12/21/2017 Secondary NOT GIVENUNK Annabelle Insurance:SELF PAY [facility] Number: Effective Repository Date:2017-12-21 11/15/2017 BEVERLY L Primary [facility]EVERLY L [facility] Insurance:PRIME TIME KORNEAUSDOB: Foundation [id number]Policy [id number] Number: [address] [place] [address]~[facility] [id number] [id number]: 330 [email or web address] Date:2016-12-19 [phone] Tel: [phone] (HP) Name:OLY SAENZ [phone] (WP) (HP)Tel: [phone] [place] [phone] (WP) [address]EE: 09/24/2017 Beverly L Primary [place] [id number] Insurance:YUN KorazausDOB: [facility] [id number] Number: Repository [id number]: [id number] [phone] Date:[id number] [address] (HP) [address] [address]CU: 09/24/2017 Secondary NOT GIVENUNK Annabelle Insurance:SELF PAY [facility] Number: Effective Repository Date:2017-06-28
== END ==
PROVIDERS: Family Provider Internal Medicine; PCP Internal Medicine; Referring Provider Urology; Visit Provider Urology
DX: C61 Malignant neoplasm of prostate (principal)
CPT/HCPCS: 36415; 84153

== ENCOUNTER → 2018-12-28 10:28 | Outpatient (CLI) | payer MEDICARE, SELFPAY ==
[2018-12-28 12:15] LABS: PSA,Total- Diagnostic < 0.01 ng/mL (0.0-4.0)
== END ==
PROVIDERS: Referring Provider Urology; Visit Provider Urology
DX: C61 Malignant neoplasm of prostate (principal)
CPT/HCPCS: 36415; 84153

== ENCOUNTER → 2019-06-30 09:16 | Outpatient (CLI) | payer MEDICARE, SELFPAY ==
[2019-06-30 10:54] LABS: PSA,Total- Diagnostic < 0.01 ng/mL (0.0-4.0)
== END ==
LOC: LAB.FUTURE 09:19 → LAB 09:23
PROVIDERS: PCP Nurse Practitioner Family; Referring Provider Urology; Visit Provider Urology
DX: C61 Malignant neoplasm of prostate (principal)
CPT/HCPCS: 36415; 84153

== ENCOUNTER → 2019-12-25 09:14 | Outpatient (CLI) | payer MEDICARE, SELFPAY ==
[2019-12-25 10:12] LABS: PSA,Total- Diagnostic < 0.01 ng/mL (0.0-4.0)
== END ==
PROVIDERS: PCP Nurse Practitioner Family; Referring Provider Urology; Visit Provider Urology
DX: C61 Malignant neoplasm of prostate (principal)
CPT/HCPCS: 36415; 84153

== ENCOUNTER → 2021-03-03 10:15 | Outpatient (CLI) | payer MEDICARE, SELFPAY ==
[2021-03-03 12:01] LABS: PSA,Total- Diagnostic < 0.01 ng/mL (0.0-4.0)
== END ==
PROVIDERS: PCP Nurse Practitioner Family; Referring Provider Urology; Visit Provider Urology
DX: C61 Malignant neoplasm of prostate (principal)
CPT/HCPCS: 36415; 84153